=== PATIENT | female | born 1995 | race African-American/Black ===

== ENCOUNTER 2016-04-11 13:12 | Emergency (ER) | payer OTHER ==
[~2016-04-11 13:12] MED LIST: INSUH10VL SC; INSUHUMDS SC; INSULANT SC; LEVA750T PO
--- NOTE | 2016-04-11 14:42 | EDDOCDS ---
Nurse's Notes [facility] Name: Lindsay Livingston Age: 21 yrs Sex: Female : 1995 Arrival Date: 04/11/2016 Time: 13:12 Bed TR7 Private MD: Diagnosis: Acute tonsillitis Presentation: 04/11 13:17 Presenting complaint: Patient states: pt c/p swollen tonsils, pain with swallowing, and ead body aches. onset of symptoms two days ago. Adult Sepsis Screening: The patient does not have new or worsening altered mentation. Patient's respiratory rate is less than 22. Systolic blood pressure is greater than 100. Patient has a qSOFA score of 0- Negative Sepsis Screen. Suicide/Homicide risk assessment- the patient denies having any suicidal and/or homicidal ideations and does not present with any other emotional, behavioral or mental health complaints. Status: Patient is not a director of special services or dependent. Transition of care: patient was not received from another setting of care. 13:17 Acuity: TANNER Level 4 ead 13:17 Method Of Arrival: Walkin/Carried/Asstd ead Triage Assessment: 13:19 General: Appears in no apparent distress, uncomfortable, Behavior is appropriate for ead age, cooperative. Pain: Location: throat Pain currently is 8 out of 10 on a pain scale. HIV screening NA for this visit Offered previously. EENT: Reports pain when swallowing. Respiratory: Airway is patent Respiratory effort is even, unlabored. Derm: No deficits noted. 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 Lantus 10 units Sub-Q twice a day (Last dose: 04/11/2016 07:00) 2. Novolog 14 units with each meal TID Sub-Q (Last dose: 04/11/2016 07:00) - PMHx: Diabetes - IDDM: controlled; - PSHx: tooth extraction; - Social history: Smoking status: Patient states was never smoker of tobacco. No barriers to communication noted, The patient speaks fluent Gabonese, Speaks appropriately for age. - Family history: Not pertinent. - : The pt / caregiver states he / she is not on anticoagulants. Home medication list is obtained from the patient, [employer] import data. - Exposure Risk Screening:: None identified. Screenin:41 Screening information is obtained from the patient. Fall risk: No risks identified. ead Assistance ADL's: requires no assistance with activities of daily living. Abuse/DV Screen: The patient / caregiver reports he/she is: not in a situation that causes fear, pain or injury. Nutritional screening: No deficits noted. Advance Directives: Currently, there is no health care proxy. home support is adequate. Assessment: 13:53 Adult Sepsis Screening: The patient does not have new or worsening altered mentation. dsf Patient's respiratory rate is less than 22. Systolic blood pressure is greater than 100. Patient has a qSOFA score of 0- Negative Sepsis Screen. General: Appears ill. Pain: Location: head, ears, throat and generalized all over body Quality of pain is described as aching. Neurological: Level of Consciousness is awake, alert. EENT: Reports pain in right ear and left ear when swallowing. Respiratory: Airway is patent Respiratory effort is even, unlabored, Respiratory pattern is regular, symmetrical. Derm: Skin is pink, warm & dry. 14:41 General: Appears in no apparent distress, Behavior is appropriate for age, cooperative. ead Neurological: Level of Consciousness is awake, alert, obeys commands, Oriented to person, place, time. Respiratory: Airway is patent Respiratory effort is even, unlabored. Derm: Skin is pink, warm & dry. Vital Signs: 13:13 BP 152 / 94; Pulse 109; Resp 16; Temp 98.8(O); Pulse Ox 99% on R/A; Weight 61.23 kg lr2 (R); Height 5 ft. 3 in. (160.02 cm) (R); Pain 8/10; 14:40 BP 121 / 77; Pulse 118; Resp 16; Temp 100.2(O); Pulse Ox 96% on R/A; ead 13:13 Body Mass Index 23.91 (61.23 kg, 160.02 cm) lr2 14:40 tempurature discussed with provider, recommended pt take tylenol or motrin at home for ead fever as needed. Vitals: 13:13 Log In Time: April 11, 2016 at 13:12. lr2 ED Course: 13:13 Patient visited by Krystle Watts. lr2 13:13 Patient moved to Waiting lr2 13:14 Patient moved to Pre RCE lr2 13:18 Triage Initiated ead 13:53 Patient moved to Triage 1 dsf 13:54 Patient visited by Angela Avery RN. dsf 14:27 Adan Ye [facility]-C [facility] cc10 14:27 Preet Wilkins MD is Attending Physician. cc10 14:27 Patient visited by Adan Ye PA-C. cc10 14:27 Patient visited by Adan Ye PA-C. cc10 14:40 Patient moved to TR7 ar3 14:41 The patient / caregiver is instructed regarding the plan of care and ED course. ead 14:41 No IV's were initiated during this patient's visit. No procedures done that require ead assistance. Order Results: There are currently no results for this order. Outcome: 14:31 Discharge ordered by Provider. cc10 14:41 Discharge Assessment: Patient awake and alert. obeys commands, Oriented to person, ead place and time. patient administered narcotics - no. The following High Risk Discharge criteria are identified: None. Discharged to home ambulatory. Condition: unchanged. Discharge instructions given to patient, Instructed on discharge instructions, follow up and referral plans. medication usage, Demonstrated understanding of instructions, medications, Pt was receptive of discharge instructions/ teaching. Prescriptions given X 3. No special radiology studies were completed. Property sent home with patient. 14:42 Patient left the ED. ead Signatures: Jenn Navarro, INSPECTOR MATERIALS AND PROCESSES INSPECTOR MATERIALS AND PROCESSES ar3 Angela Avery RN RN [facility] Aliyah Golden RN RN ead Adan Ye PA-C PA-C cc Krystle Watts lr2 MTDD
--- NOTE | 2016-04-11 14:42 | EDDOCDS ---
Physician Documentation [facility] Name: Lindsay Livingston Age: 21 yrs Sex: Female : 1995 Arrival Date: 04/11/2016 Time: 13:12 Bed TR7 Private MD: Disposition: 04/11/16 14:31 Discharged to Home/Self Care. Impression: Acute tonsillitis. - Condition is Stable. - Discharge Instructions: Tonsillitis. - Prescriptions for lidocaine HCl 2 % Mucous Membrane solution - take 15 milliliter by ORAL route every 3 hours; 200 milliliter. Amoxicillin 500 mg Oral Capsule - take 1 capsule by ORAL route every 8 hours for 10 days; 30 tablet. Prednisone 20 mg Oral Tablet - take 1 tablet by ORAL route once daily for 5 days; 5 tablet. - Work Release Form - 3 day, Medication Reconciliation form. - Follow up: Private Physician; When: Call to arrange an appointment; Reason: Recheck today's complaints, Continuance of care. - Problem is new. - Symptoms are unchanged. Historical: - Allergies: no known allergies; - Home Meds: 1. Lantus 10 units Sub-Q twice a day (Last dose: 04/11/2016 07:00) 2. Novolog 14 units with each meal TID Sub-Q (Last dose: 04/11/2016 07:00) - PMHx: Diabetes - IDDM: controlled; - PSHx: tooth extraction; - Social history: Smoking status: Patient states was never smoker of tobacco. No barriers to communication noted, The patient speaks fluent Sudanese, Speaks appropriately for age. - Family history: Not pertinent. - : The pt / caregiver states he / she is not on anticoagulants. Home medication list is obtained from the patient, [employer] import data. - Exposure Risk Screening:: None identified. 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 3 in. (160.02 cm) (R); Pain 8/10; 14:40 BP 121 / 77; Pulse 118; Resp 16; Temp 100.2(O); Pulse Ox 96% on R/A; ead 13:13 Body Mass Index 23.91 (61.23 kg, 160.02 cm) lr2 14:40 tempurature discussed with provider, recommended pt take tylenol or motrin at home for ead fever as needed. MDM: 14:32 Financial registration complete. lg Signatures: Mark Pillai, Reg Reg lg Aliyah Golden RN RN ead Adan Ye, LAURAC PAFederico cc10 MTDD
--- NOTE | 2016-04-13 15:42 | EDDOCDS ---
Nurse's Notes [facility] Name: Lindsay Livingston Age: 21 yrs Sex: Female : 1995 Arrival Date: 04/11/2016 Time: 13:12 Bed TR7 Private MD: Diagnosis: Acute tonsillitis Presentation: 04/11 13:17 Presenting complaint: Patient states: pt c/p swollen tonsils, pain with swallowing, and ead body aches. onset of symptoms two days ago. Adult Sepsis Screening: The patient does not have new or worsening altered mentation. Patient's respiratory rate is less than 22. Systolic blood pressure is greater than 100. Patient has a qSOFA score of 0- Negative Sepsis Screen. Suicide/Homicide risk assessment- the patient denies having any suicidal and/or homicidal ideations and does not present with any other emotional, behavioral or mental health complaints. Status: Patient is not a health services rn or dependent. Transition of care: patient was not received from another setting of care. 13:17 Acuity: TANNER Level 4 ead 13:17 Method Of Arrival: Walkin/Carried/Asstd ead Triage Assessment: 13:19 General: Appears in no apparent distress, uncomfortable, Behavior is appropriate for ead age, cooperative. Pain: Location: throat Pain currently is 8 out of 10 on a pain scale. HIV screening NA for this visit Offered previously. EENT: Reports pain when swallowing. Respiratory: Airway is patent Respiratory effort is even, unlabored. Derm: No deficits noted. 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 Lantus 10 units Sub-Q twice a day (Last dose: 04/11/2016 07:00) 2. Novolog 14 units with each meal TID Sub-Q (Last dose: 04/11/2016 07:00) - PMHx: Diabetes - IDDM: controlled; - PSHx: tooth extraction; - Social history: Smoking status: Patient states was never smoker of tobacco. No barriers to communication noted, The patient speaks fluent Moroccan, Speaks appropriately for age. - Family history: Not pertinent. - : The pt / caregiver states he / she is not on anticoagulants. Home medication list is obtained from the patient, [employer] import data. - Exposure Risk Screening:: None identified. Screenin:41 Screening information is obtained from the patient. Fall risk: No risks identified. ead Assistance ADL's: requires no assistance with activities of daily living. Abuse/DV Screen: The patient / caregiver reports he/she is: not in a situation that causes fear, pain or injury. Nutritional screening: No deficits noted. Advance Directives: Currently, there is no health care proxy. home support is adequate. Assessment: 13:53 Adult Sepsis Screening: The patient does not have new or worsening altered mentation. dsf Patient's respiratory rate is less than 22. Systolic blood pressure is greater than 100. Patient has a qSOFA score of 0- Negative Sepsis Screen. General: Appears ill. Pain: Location: head, ears, throat and generalized all over body Quality of pain is described as aching. Neurological: Level of Consciousness is awake, alert. EENT: Reports pain in right ear and left ear when swallowing. Respiratory: Airway is patent Respiratory effort is even, unlabored, Respiratory pattern is regular, symmetrical. Derm: Skin is pink, warm & dry. 14:41 General: Appears in no apparent distress, Behavior is appropriate for age, cooperative. ead Neurological: Level of Consciousness is awake, alert, obeys commands, Oriented to person, place, time. Respiratory: Airway is patent Respiratory effort is even, unlabored. Derm: Skin is pink, warm & dry. Vital Signs: 13:13 BP 152 / 94; Pulse 109; Resp 16; Temp 98.8(O); Pulse Ox 99% on R/A; Weight 61.23 kg lr2 (R); Height 5 ft. 3 in. (160.02 cm) (R); Pain 8/10; 14:40 BP 121 / 77; Pulse 118; Resp 16; Temp 100.2(O); Pulse Ox 96% on R/A; ead 13:13 Body Mass Index 23.91 (61.23 kg, 160.02 cm) lr2 14:40 tempurature discussed with provider, recommended pt take tylenol or motrin at home for ead fever as needed. Vitals: 13:13 Log In Time: April 11, 2016 at 13:12. lr2 ED Course: 13:13 Patient visited by Krystle Watts. lr2 13:13 Patient moved to Waiting lr2 13:14 Patient moved to Pre RCE lr2 13:18 Triage Initiated ead 13:53 Patient moved to Triage 1 dsf 13:54 Patient visited by Angela Avery,THOMAS. dsf 14:27 Adan Ye [facility]-C [facility] cc10 14:27 Preet Wilkins MD is Attending Physician. cc10 14:27 Patient visited by Adan Ye PA-C. cc10 14:27 Patient visited by Adan Ye PA-C. cc10 14:40 Patient moved to TR7 ar3 14:41 The patient / caregiver is instructed regarding the plan of care and ED course. ead 14:41 No IV's were initiated during this patient's visit. No procedures done that require ead assistance. 14:43 [facility] Payment Agreement was scanned into [employer] and attached to record. Order Results: There are currently no results for this order. Outcome: 14:31 Discharge ordered by Provider. [facility] 14:41 Discharge Assessment: Patient awake and alert. obeys commands, Oriented to person, ead place and time. patient administered narcotics - no. The following High Risk Discharge criteria are identified: None. Discharged to home ambulatory. Condition: unchanged. Discharge instructions given to patient, Instructed on discharge instructions, follow up and referral plans. medication usage, Demonstrated understanding of instructions, medications, Pt was receptive of discharge instructions/ teaching. Prescriptions given X 3. No special radiology studies were completed. Property sent home with patient. 14:42 Patient left the ED. ead Signatures: Mark Pillai, Reg Reg lg Jenn Navarro, EVS ATTENDANT EVS ATTENDANT ar3 Angela AveryRN RN [facility] Aliyah Golden RN RN ead Adan Ye PA-C PA-C cc Krystle Watts lr2 Chart Complete MTDD
--- NOTE | 2016-04-13 15:42 | EDDOCDS ---
Physician Documentation [facility] Name: Lindsay Livingston Age: 21 yrs Sex: Female : 1995 Arrival Date: 04/11/2016 Time: 13:12 Bed TR7 Private MD: Disposition: 04/11/16 14:31 Discharged to Home/Self Care. Impression: Acute tonsillitis. - Condition is Stable. - Discharge Instructions: Tonsillitis. - Prescriptions for lidocaine HCl 2 % Mucous Membrane solution - take 15 milliliter by ORAL route every 3 hours; 200 milliliter. Amoxicillin 500 mg Oral Capsule - take 1 capsule by ORAL route every 8 hours for 10 days; 30 tablet. Prednisone 20 mg Oral Tablet - take 1 tablet by ORAL route once daily for 5 days; 5 tablet. - Work Release Form - 3 day, Medication Reconciliation form. - Follow up: Private Physician; When: Call to arrange an appointment; Reason: Recheck today's complaints, Continuance of care. - Problem is new. - Symptoms are unchanged. Historical: - Allergies: no known allergies; - Home Meds: 1. Lantus 10 units Sub-Q twice a day (Last dose: 04/11/2016 07:00) 2. Novolog 14 units with each meal TID Sub-Q (Last dose: 04/11/2016 07:00) - PMHx: Diabetes - IDDM: controlled; - PSHx: tooth extraction; - Social history: Smoking status: Patient states was never smoker of tobacco. No barriers to communication noted, The patient speaks fluent Emirati, Speaks appropriately for age. - Family history: Not pertinent. - : The pt / caregiver states he / she is not on anticoagulants. Home medication list is obtained from the patient, [employer] import data. - Exposure Risk Screening:: None identified. 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 3 in. (160.02 cm) (R); Pain 8/10; 14:40 BP 121 / 77; Pulse 118; Resp 16; Temp 100.2(O); Pulse Ox 96% on R/A; ead 13:13 Body Mass Index 23.91 (61.23 kg, 160.02 cm) lr2 14:40 tempurature discussed with provider, recommended pt take tylenol or motrin at home for ead fever as needed. MDM: 14:32 Financial registration complete. lg 14:43 [facility] Payment Agreement was scanned into [employer] and attached to record. lg Signatures: Mark Pillai, Brayan Reg lg Aliyah Golden RN RN ead Adan Ye, PA-C PA-C cc10 The chart was reviewed and I authenticate all verbal orders and agree with the evaluation and treatment provided.Attachments: 14:43 [facility] [place] Agreement lg Chart Complete MTDD
--- NOTE | 2016-04-13 15:42 | EDDOCDS ---
Physician Documentation [facility] Name: Lindsay Livingston Age: 21 yrs Sex: Female : 1995 Arrival Date: 04/11/2016 Time: 13:12 Bed TR7 Private MD: Disposition: 04/11/16 14:31 Discharged to Home/Self Care. Impression: Acute tonsillitis. - Condition is Stable. - Discharge Instructions: Tonsillitis. - Prescriptions for lidocaine HCl 2 % Mucous Membrane solution - take 15 milliliter by ORAL route every 3 hours; 200 milliliter. Amoxicillin 500 mg Oral Capsule - take 1 capsule by ORAL route every 8 hours for 10 days; 30 tablet. Prednisone 20 mg Oral Tablet - take 1 tablet by ORAL route once daily for 5 days; 5 tablet. - Work Release Form - 3 day, Medication Reconciliation form. - Follow up: Private Physician; When: Call to arrange an appointment; Reason: Recheck today's complaints, Continuance of care. - Problem is new. - Symptoms are unchanged. Historical: - Allergies: no known allergies; - Home Meds: 1. Lantus 10 units Sub-Q twice a day (Last dose: 04/11/2016 07:00) 2. Novolog 14 units with each meal TID Sub-Q (Last dose: 04/11/2016 07:00) - PMHx: Diabetes - IDDM: controlled; - PSHx: tooth extraction; - Social history: Smoking status: Patient states was never smoker of tobacco. No barriers to communication noted, The patient speaks fluent [place], Speaks appropriately for age. - Family history: Not pertinent. - : The pt / caregiver states he / she is not on anticoagulants. Home medication list is obtained from the patient, [employer] import data. - Exposure Risk Screening:: None identified. 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 3 in. (160.02 cm) (R); Pain 8/10; 14:40 BP 121 / 77; Pulse 118; Resp 16; Temp 100.2(O); Pulse Ox 96% on R/A; ead 13:13 Body Mass Index 23.91 (61.23 kg, 160.02 cm) lr2 14:40 tempurature discussed with provider, recommended pt take tylenol or motrin at home for ead fever as needed. MDM: 14:32 Financial registration complete. lg 14:43 [facility] Payment Agreement was scanned into [employer] and attached to record. lg Signatures: Mark Pillai, Brayan Reg lg Aliyah Golden RN RN ead Adan Ye, PA-C PA-C cc10 The chart was reviewed and I authenticate all verbal orders and agree with the evaluation and treatment provided.Attachments: 14:43 [facility] [place] lg Chart Complete MTDD
== END 2016-04-11 14:42 | disposition home or self-care (01) ==
LOC: M ED 13:12
DX: J03.00 Acute streptococcal tonsillitis, unspecified (principal); E10.9 Type 1 diabetes mellitus without complications; Z79.4 Long term (current) use of insulin

== ENCOUNTER 2016-06-13 20:33 | Emergency (ER) | payer OTHER ==
[~2016-06-13] VITALS: Ht 160 cm; Wt 63.5 kg
[2016-06-13] MEDS ORDERED: ERYTHROMYCIN OPHTH OINT OU ONE (22:15)
[2016-06-13] MEDS ORDERED: ERYTOIN8 OU (22:16)
[2016-06-13 22:25] VITALS: BP 101/61
== END 2016-06-13 22:28 | disposition home or self-care (01) ==
LOC: M ED 21:55
DX: B30.9 Viral conjunctivitis, unspecified (principal); E10.9 Type 1 diabetes mellitus without complications; I10 Essential (primary) hypertension; F41.9 Anxiety disorder, unspecified; D57.3 Sickle-cell trait; Z79.4 Long term (current) use of insulin

== ENCOUNTER → 2016-11-12 | Outpatient (REF) | payer OTHER, SELFPAY ==
[~2016-11-12] MED LIST changes: +ERYTOIN8 OU; -LEVA750T PO; +LEVA750T7 PO
== END ==
LOC: M SFHCLERA 18:57
PROVIDERS: ATTEND Physician Assistant
DX: R30.0 Dysuria (principal)

== ENCOUNTER → 2017-01-03 | Outpatient (REF) | payer OTHER | LOC: M SFHCLERA 16:21 | PROVIDERS: ATTEND Nurse Practitioner Family | DX: R39.15 Urgency of urination (principal) ==

== ENCOUNTER → 2017-05-09 | Outpatient (CLI) | payer OTHER ==
[2017-05-09 11:13] LABS: BASO # 0.1 10^3/uL (0.0-0.2); BASO % 0.5 % (0.0-1.0); EOS # 0.2 10^3/uL (0.0-0.50); EOS % 1.5 % (0.0-3.0); HEMOGLOBIN 11.3 g/dl (12.0-16.0); IMMATURE GRANULOCYTE % 0.2 % (0-3.0); LYMPH # 2.4 10^3/uL (1.5-6.5); LYMPH % 21.8 % (24.0-44.0); MEAN CORPUSCULAR HEMOGLOBIN 26.2 pg (27.0-33.0); MEAN CORPUSCULAR HGB CONC 35.3 g/dl (32.0-36.5); MEAN CORPUSCULAR VOLUME 74.1 fl (80.0-96.0); MONO # 0.6 10^3/uL (0.0-0.8); MONO % 5.3 % (0.0-5.0); NEUTROPHILS # 7.7 10^3/uL (1.8-7.7); NEUTROPHILS % 70.7 % (36.0-66.0); PLATELET COUNT, AUTOMATED 249 10^3/uL (150-450); RED BLOOD COUNT 4.32 10^6/uL (4.00-5.40); RED CELL DISTRIBUTION WIDTH 13.2 % (11.5-14.5); WHITE BLOOD COUNT 10.9 10^3/uL (4.0-10.0)
[2017-05-09 11:46] LABS: ESTIMATED AVERAGE GLUCOSE 206 MG/DL (60-110); HEMOGLOBIN A1c 8.8 %
[2017-05-09 12:20] LABS: ALT/SGPT 18 U/L (12-78); AST/SGOT 9 U/L (7-37); BILIRUBIN,TOTAL 0.5 MG/DL (0.2-1.0); CREATININE FOR GFR 0.61 MG/DL (0.55-1.30); GLOMERULAR FILTRATION RATE > 60.0 (>60); LDH LACTATE DEHYDROGENASE 183 U/L (84-246); URIC ACID 2.4 MG/DL (2.6-6.0)
[2017-05-09 12:21] LABS: TOTAL PROTEIN,RANDOM URINE 309.9 MG/DL (0.0-12.0)
[2017-05-09 13:29] LABS: CHLAMYDIA DNA AMPLIFICATION NEGATIVE (NEGATIVE); GC DNA AMPLIFICATION NEGATIVE (NEGATIVE)
[2017-05-10 10:35] LABS: HBsAg Prenatal NEGATIVE (NEGATIVE); RUBELLA IgG QUALITATIVE IMMUNE (IMMUNE)
[2017-05-10 10:56] LABS: HEPATITIS C VIRUS ABY INDEX < 0.0 INDEX (<0.8)
[2017-05-10 11:13] LABS: HIV 1&2 SCREEN CENTAUR NEGATIVE (NEGATIVE)
== END ==
LOC: M LAB 10:22
DX: Z34.81 Encounter for supervision of other normal pregnancy, first trimester (principal); Z3A.09 9 weeks gestation of pregnancy
CPT/HCPCS: 84460

== ENCOUNTER → 2017-05-09 | Outpatient (CLI) | payer OTHER | LOC: M SMT 09:39 | DX: Z3A.09 9 weeks gestation of pregnancy (principal); Z53.9 Procedure and treatment not carried out, unspecified reason ==

== ENCOUNTER 2017-05-19 01:29 | Emergency (ER) | payer OTHER ==
[2017-05-19 02:11] LABS: BEDSIDE GLUCOSE 58 MG/DL (70-105)
[2017-05-19] MEDS: DEXTROSE 50% 50 ML SYRINGE IV (02:40)
[2017-05-19 03:24] LABS: BEDSIDE GLUCOSE 127 MG/DL (70-105)
[2017-05-19] MEDS: D5W/0.45% SODIUM CHLORIDE 1,000 ML IV ×2 (03:30→12:17)
[2017-05-19 05:43] LABS: BEDSIDE GLUCOSE 140 MG/DL (70-105)
[2017-05-19 05:43] LABS: BEDSIDE GLUCOSE 126 MG/DL (70-105)
[2017-05-19] MEDS: HYALURONIDASE 150UNIT/ML 1ML VIAL (AMPHADASE) (J3470) ID ×2 (07:29→07:30)
[2017-05-19] MEDS: HumuLIN R (REGULAR) INSULIN (NovoLIN R) **100U/ML** PER UNIT SC (13:28)
[2017-05-20 08:45] LABS: BEDSIDE GLUCOSE 182 MG/DL (70-105)
[2017-05-20 08:45] LABS: BEDSIDE GLUCOSE 168 MG/DL (70-105)
[2017-05-20 08:45] LABS: BEDSIDE GLUCOSE 275 MG/DL (70-105)
[2017-05-20 08:45] LABS: BEDSIDE GLUCOSE 240 MG/DL (70-105)
== END 2017-05-19 16:01 | disposition home or self-care (01) ==
LOC: M ED 01:29
DX: O9A.211 Injury, poisoning and certain other consequences of external causes complicating pregnancy, first trimester (principal); Y92.238 Other place in hospital as the place of occurrence of the external cause; O24.011 Pre-existing type 1 diabetes mellitus, in pregnancy, first trimester; Z3A.11 11 weeks gestation of pregnancy; Z79.4 Long term (current) use of insulin
CPT/HCPCS: J3470

== ENCOUNTER 2017-05-20 13:10 | Emergency (ER) | payer OTHER | END 2017-05-20 13:54 | disposition home or self-care (01) | LOC: M ED 13:10 | DX: O9A.211 Injury, poisoning and certain other consequences of external causes complicating pregnancy, first trimester (principal); T80.89XA Other complications following infusion, transfusion and therapeutic injection, initial encounter; M79.631 Pain in right forearm; M79.89 Other specified soft tissue disorders; X58.XXXA Exposure to other specified factors, initial encounter; Y92.238 Other place in hospital as the place of occurrence of the external cause; O24.011 Pre-existing type 1 diabetes mellitus, in pregnancy, first trimester; O10.92 Unspecified pre-existing hypertension complicating childbirth; O99.611 Diseases of the digestive system complicating pregnancy, first trimester; K21.9 Gastro-esophageal reflux disease without esophagitis; Z3A.11 11 weeks gestation of pregnancy | CPT/HCPCS: 99282 ==

== ENCOUNTER → 2017-06-14 | Outpatient (REF) | payer OTHER | LOC: M LAB REF 13:04 | DX: O24.012 Pre-existing type 1 diabetes mellitus, in pregnancy, second trimester (principal); Z3A.00 Weeks of gestation of pregnancy not specified | CPT/HCPCS: 87186 ==

== ENCOUNTER 2017-06-15 22:46 | Emergency (ER) | payer OTHER ==
[2017-06-15] MEDS: NS 1,000 ML IV (23:24)
[2017-06-15 23:29] LABS: BEDSIDE GLUCOSE 128 MG/DL (70-105)
[2017-06-15 23:32] LABS: HEMATOCRIT 29.7 % (36.0-47.0); HEMOGLOBIN 10.7 g/dl (12.0-15.5); MEAN CORPUSCULAR HEMOGLOBIN 27.2 pg (27.0-33.0); MEAN CORPUSCULAR VOLUME 75.6 fl (80.0-96.0); PLATELET COUNT, AUTOMATED 204 10^3/uL (150-450); RED BLOOD COUNT 3.93 10^6/uL (4.00-5.40); RED CELL DISTRIBUTION WIDTH 13.2 % (11.5-14.5); WHITE BLOOD COUNT 14.7 10^3/uL (4.0-10.0)
[2017-06-15 23:54] LABS: ANION GAP 5 MEQ/L (8-16); BLOOD UREA NITROGEN 14 MG/DL (7-18); CALCIUM LEVEL 8.6 MG/DL (8.5-10.1); CARBON DIOXIDE LEVEL 26 MEQ/L (21-32); CHLORIDE LEVEL 110 MEQ/L (98-107); CREATININE FOR GFR 0.59 MG/DL (0.55-1.30); GLOMERULAR FILTRATION RATE > 60.0 (>60); GLUCOSE, FASTING 91 MG/DL (70-100); POTASSIUM SERUM 3.8 MEQ/L (3.5-5.1); SODIUM LEVEL 141 MEQ/L (136-145)
== END 2017-06-16 00:25 | disposition home or self-care (01) ==
LOC: M ED 06-16 00:25
DX: O24.112 Pre-existing type 2 diabetes mellitus, in pregnancy, second trimester (principal); E11.649 Type 2 diabetes mellitus with hypoglycemia without coma; Z3A.14 14 weeks gestation of pregnancy
CPT/HCPCS: 80048

== ENCOUNTER → 2017-06-30 | Outpatient (REF) | payer OTHER, MEDICAID | LOC: M LAB REF 13:27 | DX: O24.12 Pre-existing type 2 diabetes mellitus, in childbirth (principal); Z3A.00 Weeks of gestation of pregnancy not specified | CPT/HCPCS: 87086 ==

== ENCOUNTER → 2017-08-22 | Outpatient (CLI) | payer OTHER, MEDICAID ==
[2017-08-22 17:39] LABS: HEMATOCRIT 27.1 % (36.0-47.0); HEMOGLOBIN 9.6 g/dl (12.0-15.5); MEAN CORPUSCULAR HEMOGLOBIN 28.3 pg (27.0-33.0); MEAN CORPUSCULAR HGB CONC 35.4 g/dl (32.0-36.5); MEAN CORPUSCULAR VOLUME 79.9 fl (80.0-96.0); PLATELET COUNT, AUTOMATED 168 10^3/uL (150-450); RED BLOOD COUNT 3.39 10^6/uL (4.00-5.40); RED CELL DISTRIBUTION WIDTH 12.9 % (11.5-14.5); WHITE BLOOD COUNT 14.3 10^3/uL (4.0-10.0)
== END ==
LOC: M LAB 15:43
DX: Z34.82 Encounter for supervision of other normal pregnancy, second trimester (principal); Z3A.24 24 weeks gestation of pregnancy
CPT/HCPCS: 76811

== ENCOUNTER → 2017-09-15 | Outpatient (CLI) | payer OTHER | LOC: M RAD 13:13 | DX: Z34.82 Encounter for supervision of other normal pregnancy, second trimester (principal) | CPT/HCPCS: 76816 ==

== ENCOUNTER → 2017-10-17 | Outpatient (CLI) | payer OTHER | LOC: M WHC 14:54 | DX: O24.012 Pre-existing type 1 diabetes mellitus, in pregnancy, second trimester (principal); Z3A.33 33 weeks gestation of pregnancy | CPT/HCPCS: 76816 ==

== ENCOUNTER → 2017-10-26 | Outpatient (CLI) | payer OTHER ==
[2017-10-26 15:11] LABS: ESTIMATED AVERAGE GLUCOSE 143 MG/DL (60-110); HEMOGLOBIN A1c 6.6 %
== END ==
LOC: M SMT 10:24
DX: O24.113 Pre-existing type 2 diabetes mellitus, in pregnancy, third trimester (principal); Z3A.00 Weeks of gestation of pregnancy not specified
CPT/HCPCS: 83036

== ENCOUNTER 2017-11-06 14:16 | Inpatient (IN) | payer OTHER ==
[2017-11-06 14:54] LABS: BEDSIDE GLUCOSE 235 MG/DL (70-105)
[2017-11-06] MEDS: ONDANSETRON 4MG/2ML VIAL (J2405) IV ×3 (15:10→23:15)
[2017-11-06] MEDS: NS 1,000 ML IV ×2 (15:10→17:03)
[2017-11-06 15:19] LABS: HEMATOCRIT 34.4 % (36.0-47.0); HEMOGLOBIN 11.9 g/dl (12.0-15.5); MEAN CORPUSCULAR HEMOGLOBIN 27.8 pg (27.0-33.0); MEAN CORPUSCULAR HGB CONC 34.6 g/dl (32.0-36.5); MEAN CORPUSCULAR VOLUME 80.4 fl (80.0-96.0); PLATELET COUNT, AUTOMATED 133 10^3/uL (150-450); RED BLOOD COUNT 4.28 10^6/uL (4.00-5.40); RED CELL DISTRIBUTION WIDTH 14.6 % (11.5-14.5); WHITE BLOOD COUNT 10.2 10^3/uL (4.0-10.0)
[2017-11-06 15:22] LABS: APPEARANCE, URINE HAZY (CLEAR); BACTERIA, URINE AUTO NEGATIVE (NEGATIVE); BILIRUBIN, URINE AUTO NEGATIVE (NEGATIVE); BLOOD, URINE BLOOD NEGATIVE (NEGATIVE); COLOR, URINE YELLOW (YELLOW); GLUCOSE, URINE (UA) AUTO 3+ mg/dL (NEGATIVE); KETONE, URINE AUTO 2+ mg/dL (NEGATIVE); LEUKOCYTE ESTERASE, URINE AUTO NEGATIVE (NEGATIVE); MUCUS, URINE SMALL (NEGATIVE); NITRITE, URINE AUTO NEGATIVE (NEGATIVE); PROTEIN, URINE AUTO 3+ mg/dL (NEGATIVE); RBC, URINE AUTO 4 /HPF (0-3); SPECIFIC GRAVITY URINE AUTO 1.021 (1.002-1.035); SQUAMOUS EPITHELIAL CELL UR AU 0 /HPF (0-6); UROBILINOGEN, URINE AUTO 0.2 mg/dL (0.0-2.0); WBC, URINE AUTO 3 /HPF (0-3)
[2017-11-06 15:39] LABS: ALBUMIN 2.6 GM/DL (3.2-5.2); ALBUMIN/GLOBULIN RATIO 0.65 (1.00-1.93); ALKALINE PHOSPHATASE 167 U/L (45-117); ALT/SGPT 17 U/L (12-78); ANION GAP 16 MEQ/L (8-16); AST/SGOT 40 U/L (7-37); BILIRUBIN,TOTAL 0.5 MG/DL (0.2-1.0); BLOOD UREA NITROGEN 19 MG/DL (7-18); CALCIUM LEVEL 8.7 MG/DL (8.5-10.1); CARBON DIOXIDE LEVEL 17 MEQ/L (21-32); CHLORIDE LEVEL 106 MEQ/L (98-107); CREATININE FOR GFR 1.09 MG/DL (0.55-1.30); GLOMERULAR FILTRATION RATE > 60.0 (>60); GLUCOSE, FASTING 211 MG/DL (70-100); POTASSIUM SERUM 4.9 MEQ/L (3.5-5.1); SODIUM LEVEL 139 MEQ/L (136-145); TOTAL PROTEIN 6.6 GM/DL (6.4-8.2)
[2017-11-06] MEDS ORDERED: GLUCOSE 4 GM CHEW TABLET PO (15:45)
[2017-11-06] MEDS ORDERED: DEXTROSE 50% 50 ML SYRINGE IV (15:45)
[2017-11-06] MEDS ORDERED: GLUCAGON FOR INJ 1 MG VIAL (J1610) SC (15:45)
[2017-11-06 16:04] LABS: LDH LACTATE DEHYDROGENASE 271 U/L (84-246); URIC ACID 7.2 MG/DL (2.6-6.0)
[2017-11-06 16:27] LABS: BEDSIDE GLUCOSE 198 MG/DL (70-105)
[2017-11-06 16:50] LABS: TOTAL PROTEIN,RANDOM URINE 369.4 MG/DL (0.0-12.0)
[2017-11-06] MEDS ORDERED: HumaLOG INSULIN (NovoLOG) PER UNIT SC (17:30)
[2017-11-06] MEDS: INSULIN HUMAN REGULAR 100 UNITS in NS 99 ML IV (17:49)
[2017-11-06 17:54] LABS: BEDSIDE GLUCOSE 183 MG/DL (70-105)
[2017-11-06 21:49] LABS: BEDSIDE GLUCOSE 103 MG/DL (70-105)
[2017-11-06 21:53] LABS: BEDSIDE GLUCOSE 85 MG/DL (70-105)
[2017-11-06 23:55] LABS: BEDSIDE GLUCOSE 92 MG/DL (70-105)
[2017-11-07] MEDS: NS 1,000 ML IV ×3 (01:04→13:57)
[2017-11-07] MEDS: INSULIN HUMAN REGULAR 100 UNITS in NS 99 ML IV (01:50)
[2017-11-07 01:51] LABS: BEDSIDE GLUCOSE 72 MG/DL (70-105)
[2017-11-07] MEDS: PROMETHAZINE INJ 25 MG/ML VIAL (J2550) IV ×3 (02:20→17:12)
[2017-11-07 03:55] LABS: BEDSIDE GLUCOSE 71 MG/DL (70-105)
[2017-11-07 06:02] LABS: BEDSIDE GLUCOSE 74 MG/DL (70-105)
[2017-11-07 07:59] LABS: BEDSIDE GLUCOSE 86 MG/DL (70-105)
[2017-11-07 09:51] LABS: HEMATOCRIT 29.6 % (36.0-47.0); HEMOGLOBIN 10.3 g/dl (12.0-15.5); MEAN CORPUSCULAR HEMOGLOBIN 27.8 pg (27.0-33.0); MEAN CORPUSCULAR HGB CONC 34.8 g/dl (32.0-36.5); MEAN CORPUSCULAR VOLUME 79.8 fl (80.0-96.0); PLATELET COUNT, AUTOMATED 132 10^3/uL (150-450); RED BLOOD COUNT 3.71 10^6/uL (4.00-5.40); RED CELL DISTRIBUTION WIDTH 14.6 % (11.5-14.5); WHITE BLOOD COUNT 11.4 10^3/uL (4.0-10.0)
[2017-11-07 09:53] LABS: BEDSIDE GLUCOSE 88 MG/DL (70-105)
[2017-11-07 10:19] LABS: ALBUMIN 2.1 GM/DL (3.2-5.2); ALBUMIN/GLOBULIN RATIO 0.53 (1.00-1.93); ALKALINE PHOSPHATASE 155 U/L (45-117); ALT/SGPT 15 U/L (12-78); ANION GAP 19 MEQ/L (8-16); AST/SGOT 28 U/L (7-37); BILIRUBIN,TOTAL 0.5 MG/DL (0.2-1.0); BLOOD UREA NITROGEN 15 MG/DL (7-18); CALCIUM LEVEL 8.4 MG/DL (8.5-10.1); CARBON DIOXIDE LEVEL 12 MEQ/L (21-32); CHLORIDE LEVEL 110 MEQ/L (98-107); CREATININE FOR GFR 0.92 MG/DL (0.55-1.30); GLOMERULAR FILTRATION RATE > 60.0 (>60); GLUCOSE, FASTING 88 MG/DL (70-100); POTASSIUM SERUM 4.2 MEQ/L (3.5-5.1); SODIUM LEVEL 141 MEQ/L (136-145); TOTAL PROTEIN 6.1 GM/DL (6.4-8.2)
[2017-11-07 11:49] LABS: BEDSIDE GLUCOSE 100 MG/DL (70-105)
[2017-11-07 13:46] LABS: BEDSIDE GLUCOSE 85 MG/DL (70-105)
[2017-11-07] MEDS ORDERED: PROMETHAZINE 25 MG TAB PO (14:45)
[2017-11-07 15:51] LABS: BEDSIDE GLUCOSE 100 MG/DL (70-105)
[2017-11-07] MEDS: MULTIVITAMIN -ADULT INJECTION 10 ML, THIAMINE INJection 100 MG, FOLIC ACID 1 MG in NS 1... IV (16:22)
[2017-11-07 17:54] LABS: BEDSIDE GLUCOSE 94 MG/DL (70-105)
[2017-11-07 19:55] LABS: BEDSIDE GLUCOSE 98 MG/DL (70-105)
[2017-11-07 21:59] LABS: BEDSIDE GLUCOSE 105 MG/DL (70-105)
[2017-11-07] MEDS: ALBUTEROL SULFATE 2.5 MG/0.5 ML INH NEB SOLN NEB (22:43)
[2017-11-08 00:25] LABS: BEDSIDE GLUCOSE 114 MG/DL (70-105)
[2017-11-08] MEDS: METOCLOPRAMIDE INJ 10MG/2ML VIAL (J2765) IV (00:26)
[2017-11-08] MEDS ORDERED: ISOVUE-370 76% 100ML VIAL (Q9967) As Ordered (01:17)
[2017-11-08 01:53] LABS: BEDSIDE GLUCOSE 148 MG/DL (70-105)
[2017-11-08 02:12] LABS: HEMATOCRIT 34.1 % (36.0-47.0); HEMOGLOBIN 11.3 g/dl (12.0-15.5); MEAN CORPUSCULAR HEMOGLOBIN 27.8 pg (27.0-33.0); MEAN CORPUSCULAR HGB CONC 33.1 g/dl (32.0-36.5); PLATELET COUNT, AUTOMATED 156 10^3/uL (150-450); RED BLOOD COUNT 4.06 10^6/uL (4.00-5.40); RED CELL DISTRIBUTION WIDTH 14.9 % (11.5-14.5)
[2017-11-08 02:51] LABS: ALT/SGPT 22 U/L (12-78); AST/SGOT 50 U/L (7-37); BILIRUBIN,TOTAL 0.6 MG/DL (0.2-1.0); CREATININE FOR GFR 1.22 MG/DL (0.55-1.30); GLOMERULAR FILTRATION RATE > 60.0 (>60); LDH LACTATE DEHYDROGENASE 291 U/L (84-246)
[2017-11-08] MEDS: INSULIN IV RATE CHANGE DOCUMENTATION ML/HR XX ×2 (03:32→06:24)
[2017-11-08 03:37] LABS: BEDSIDE GLUCOSE 152 MG/DL (70-105)
[2017-11-08] MEDS: BICITRA 30ML SOLN UDC PO (03:42)
[2017-11-08] MEDS ORDERED: ONDANSETRON 4MG/2ML VIAL (J2405) IV ×2 (03:59→05:30)
[2017-11-08] MEDS ORDERED: NALBUPHINE HCL 10 MG/ML AMP (J2300) IV ×2 (03:59→05:30)
[2017-11-08] MEDS ORDERED: NALOXONE INJ 0.4 MG/1 ML VIAL (J2310) IV ×2 (03:59)
[2017-11-08] MEDS ORDERED: METOCLOPRAMIDE INJ 10MG/2ML VIAL (J2765) IV (03:59)
[2017-11-08] MEDS ORDERED: OXYTOCIN INJ 10 UNITS/ML VIAL (J2590) As Ordered (04:25)
[2017-11-08] MEDS ORDERED: dexameTHASONE 4 MG/ML 1ML VIAL (J1100) As Ordered (04:25)
[2017-11-08] MEDS ORDERED: PHENYLephrine HCL 500 MCG/5 ML (100MCG/ML) SYRINGE (J2370) As Ordered (04:25)
[2017-11-08] MEDS ORDERED: MORPHINE PRES-FREE INJ 10 MG/10 ML VIAL (J2274) As Ordered (04:25)
[2017-11-08] MEDS ORDERED: ePHEDrine SULFATE 25 MG/5 ML(5MG/ML) SYRINGE As Ordered (04:25)
[2017-11-08] MEDS ORDERED: ONDANSETRON 4MG/2ML VIAL (J2405) As Ordered (04:25)
[2017-11-08] MEDS ORDERED: KETOROLAC 60 MG/2 ML VIAL (J1885) As Ordered (04:25)
[2017-11-08 04:28] LABS: CORD GAS ABE A -21.8; CORD GAS HCO3 A 12.2 MEQ/L; CORD GAS O2 SAT A < 15.0 %; CORD GAS PCO2 A 65.5 mmHg; CORD GAS PO2 A < 10.0 mmHg; CORD GAS TCO2 A 14.2 MEQ/L
[2017-11-08 04:32] LABS: CORD GAS PH A 6.889 UNITS
[2017-11-08 04:36] LABS: CORD GAS ABE V -20.9; CORD GAS PCO2 V 57.2 mmHg; CORD GAS TCO2 V 13.8 MEQ/L
[2017-11-08 04:44] LABS: AMPHETAMINES URINE REFLEX NEGATIVE (NEGATIVE); BARBITURATES URINE REFLEX NEGATIVE (NEGATIVE); BENZODIAZEPINES URINE REFLEX NEGATIVE (NEGATIVE); CANNABINOIDS URINE REFLEX NEGATIVE (NEGATIVE); COCAINE METABOLITE URINE REFLE NEGATIVE (NEGATIVE); METHADONE URINE REFLEX NEGATIVE (NEGATIVE); OPIATES URINE REFLEX NEGATIVE (NEGATIVE); PHENCYCLIDINE URINE REFLEX NEGATIVE (NEGATIVE)
[2017-11-08] MEDS ORDERED: MEPERIDINE INJ 25 MG/ML VIAL (J2175) IV (05:30)
[2017-11-08] MEDS ORDERED: fentaNYL 100 MCG/2 ML INJECTION (J3010) IV (05:30)
[2017-11-08] MEDS ORDERED: HYDROMORPHONE HCL 0.5 MG/ 0.5 ML SYRINGE (J1170 PER 1) IV (05:30)
[2017-11-08] MEDS ORDERED: PERCOCET 5MG/325MG TAB PO ×2 (05:30→07:15)
[2017-11-08 06:17] LABS: BEDSIDE GLUCOSE 153 MG/DL (70-105)
[2017-11-08 06:25] LABS: BEDSIDE GLUCOSE 140 MG/DL (70-105)
[2017-11-08] MEDS ORDERED: DOCUSATE SODIUM 100 MG CAP PO (07:15)
[2017-11-08] MEDS ORDERED: MEASLES,MUMPS,RUBELLA VACCINE INJ (MMR-II) (90707) SC (07:15)
[2017-11-08] MEDS ORDERED: RHOGAM 300 MCG (1500 IU) INJ (J2790) IM (07:15)
[2017-11-08] MEDS ORDERED: MOM 30ML SUSPENSION UDC PO (07:15)
[2017-11-08 07:37] LABS: BEDSIDE GLUCOSE 124 MG/DL (70-105)
[2017-11-08] MEDS ORDERED: GLUCOSE 4 GM CHEW TABLET PO (07:45)
[2017-11-08] MEDS ORDERED: DEXTROSE 50% 50 ML SYRINGE IV (07:45)
[2017-11-08] MEDS ORDERED: GLUCAGON FOR INJ 1 MG VIAL (J1610) SC (07:45)
[2017-11-08] MEDS: OXYTOCIN DRIP 30 UNITS in APPROPRIATE DILUENT 1 EA IV (08:10)
[2017-11-08] MEDS: HumuLIN N INSULIN (NovoLIN N) PER UNIT SC ×2 (08:58→16:28)
[2017-11-08] MEDS: HumuLIN R (REGULAR) INSULIN (NovoLIN R) **100U/ML** PER UNIT SC ×2 (08:58→16:28)
[2017-11-08] MEDS: PRENATAL VITAMINS CHEWABLE TABLET PO (09:00)
[2017-11-08] MEDS: KETOROLAC 30 MG/ML VIAL (J1885) IV ×3 (11:32→22:48)
[2017-11-08 11:45] LABS: BEDSIDE GLUCOSE 159 MG/DL (70-105)
[2017-11-08] MEDS: HumaLOG INSULIN (NovoLOG) PER UNIT SC ×2 (12:27→16:19)
[2017-11-08] MEDS: LR 1,000 ML IV ×3 (12:31→22:48)
[2017-11-08 16:07] LABS: BEDSIDE GLUCOSE 268 MG/DL (70-105)
[2017-11-08 22:10] LABS: BEDSIDE GLUCOSE 236 MG/DL (70-105)
[2017-11-09 06:38] LABS: BEDSIDE GLUCOSE 215 MG/DL (70-105)
[2017-11-09] MEDS: IBUPROFEN 800 MG TAB PO ×3 (06:38→22:33)
[2017-11-09] MEDS: LABETALOL 100 MG TAB PO ×2 (06:49→21:22)
[2017-11-09 07:06] LABS: HEMATOCRIT 23.6 % (36.0-47.0); MEAN CORPUSCULAR HEMOGLOBIN 27.9 pg (27.0-33.0); MEAN CORPUSCULAR HGB CONC 35.6 g/dl (32.0-36.5); MEAN CORPUSCULAR VOLUME 78.4 fl (80.0-96.0); PLATELET COUNT, AUTOMATED 118 10^3/uL (150-450); RED BLOOD COUNT 3.01 10^6/uL (4.00-5.40); RED CELL DISTRIBUTION WIDTH 14.2 % (11.5-14.5); WHITE BLOOD COUNT 14.6 10^3/uL (4.0-10.0)
[2017-11-09 07:11] LABS: HEMOGLOBIN 8.4 g/dl (12.0-15.5)
[2017-11-09 07:30] LABS: ALT/SGPT 15 U/L (12-78); AST/SGOT 32 U/L (7-37); BILIRUBIN,TOTAL 0.3 MG/DL (0.2-1.0); GLOMERULAR FILTRATION RATE > 60.0 (>60); LDH LACTATE DEHYDROGENASE 258 U/L (84-246); URIC ACID 8.8 MG/DL (2.6-6.0)
[2017-11-09] MEDS: HumuLIN N INSULIN (NovoLIN N) PER UNIT SC ×2 (08:50→17:30)
[2017-11-09] MEDS: PRENATAL VITAMINS CHEWABLE TABLET PO (08:50)
[2017-11-09] MEDS: HumuLIN R (REGULAR) INSULIN (NovoLIN R) **100U/ML** PER UNIT SC ×2 (08:50→17:30)
[2017-11-09] MEDS: HumaLOG INSULIN (NovoLOG) PER UNIT SC ×4 (09:02→21:00)
[2017-11-09] MEDS: INFLUENZA QUADRIVALENT PF VACCINE 0.5ML SYRINGE (90686) IM (10:01)
[2017-11-09] MEDS: ADACEL/BOOSTRIX VACCINE (DIPHTH/PERTUSS/ACELL/TETANUS)0.5ML SYR (90715) IM (10:03)
[2017-11-09 11:43] LABS: BEDSIDE GLUCOSE 167 MG/DL (70-105)
[2017-11-09 16:24] LABS: BEDSIDE GLUCOSE 59 MG/DL (70-105)
[2017-11-09 18:06] LABS: BEDSIDE GLUCOSE 65 MG/DL (70-105)
[2017-11-09 20:29] LABS: BEDSIDE GLUCOSE 80 MG/DL (70-105)
[2017-11-09 22:42] LABS: BEDSIDE GLUCOSE 146 MG/DL (70-105)
[2017-11-10 02:31] LABS: BEDSIDE GLUCOSE 211 MG/DL (70-105)
[2017-11-10] MEDS: PERCOCET 5MG/325MG TAB PO (02:35)
[2017-11-10] MEDS: IBUPROFEN 800 MG TAB PO ×3 (06:24→23:00)
[2017-11-10 08:01] LABS: BEDSIDE GLUCOSE 309 MG/DL (70-105)
[2017-11-10] MEDS: HumuLIN N INSULIN (NovoLIN N) PER UNIT SC ×2 (08:34→17:30)
[2017-11-10] MEDS: HumuLIN R (REGULAR) INSULIN (NovoLIN R) **100U/ML** PER UNIT SC ×2 (08:34→17:30)
[2017-11-10] MEDS: HumaLOG INSULIN (NovoLOG) PER UNIT SC ×4 (08:35→21:00)
[2017-11-10] MEDS: PRENATAL VITAMINS CHEWABLE TABLET PO (08:42)
[2017-11-10] MEDS: LABETALOL 200 MG TAB PO ×2 (08:43→21:14)
[2017-11-10 10:07] LABS: BEDSIDE GLUCOSE 278 MG/DL (70-105)
[2017-11-10 12:57] LABS: BEDSIDE GLUCOSE 206 MG/DL (70-105)
[2017-11-10] MEDS: PROMETHAZINE 25 MG TAB PO ×2 (13:01→19:36)
[2017-11-10 17:41] LABS: BEDSIDE GLUCOSE 50 MG/DL (70-105)
[2017-11-10 19:53] LABS: BEDSIDE GLUCOSE 97 MG/DL (70-105)
[2017-11-10] MEDS ORDERED: PILL CRUSHER/CUTTER 1 EACH XX (20:15)
[2017-11-10] MEDS: FAMOTIDINE 20 MG TAB PO (21:09)
[2017-11-10 21:55] LABS: BEDSIDE GLUCOSE 116 MG/DL (70-105)
[2017-11-11 04:27] LABS: BEDSIDE GLUCOSE 30 MG/DL (70-105)
[2017-11-11 04:59] LABS: BEDSIDE GLUCOSE 56 MG/DL (70-105)
[2017-11-11] MEDS: IBUPROFEN 800 MG TAB PO ×3 (07:00→23:00)
[2017-11-11] MEDS ORDERED: PILL CRUSHER/CUTTER 1 EACH XX (07:15)
[2017-11-11] MEDS: HumaLOG INSULIN (NovoLOG) PER UNIT SC ×4 (07:30→21:00)
[2017-11-11] MEDS: LABETALOL 100 MG TAB PO ×2 (08:55→22:03)
[2017-11-11] MEDS: FAMOTIDINE 20 MG TAB PO ×2 (08:56→21:00)
[2017-11-11] MEDS: PRENATAL VITAMINS CHEWABLE TABLET PO (09:00)
[2017-11-11 09:02] LABS: BEDSIDE GLUCOSE 81 MG/DL (70-105)
[2017-11-11 12:03] LABS: BEDSIDE GLUCOSE 120 MG/DL (70-105)
[2017-11-11] MEDS: NIFEdipine 30 MG XL TAB PO (14:46)
[2017-11-11 18:13] LABS: BEDSIDE GLUCOSE 164 MG/DL (70-105)
[2017-11-11 22:27] LABS: BEDSIDE GLUCOSE 77 MG/DL (70-105)
[2017-11-12 06:20] LABS: BEDSIDE GLUCOSE 314 MG/DL (70-105)
[2017-11-12] MEDS: HumaLOG INSULIN (NovoLOG) PER UNIT SC ×4 (06:30→21:00)
[2017-11-12] MEDS: IBUPROFEN 800 MG TAB PO ×3 (07:00→23:00)
[2017-11-12] MEDS: NIFEdipine 30 MG XL TAB PO (08:12)
[2017-11-12] MEDS: LABETALOL 100 MG TAB PO (08:13)
[2017-11-12 09:14] LABS: BEDSIDE GLUCOSE 194 MG/DL (70-105)
[2017-11-12] MEDS: FAMOTIDINE 20 MG TAB PO ×2 (09:16→21:00)
[2017-11-12] MEDS: PRENATAL VITAMINS CHEWABLE TABLET PO (09:16)
[2017-11-12 13:20] LABS: BEDSIDE GLUCOSE 214 MG/DL (70-105)
[2017-11-12] MEDS: LABETALOL 200 MG TAB PO ×2 (14:01→21:00)
[2017-11-12 16:14] LABS: HEMATOCRIT 25.6 % (36.0-47.0); MEAN CORPUSCULAR HEMOGLOBIN 27.5 pg (27.0-33.0); MEAN CORPUSCULAR HGB CONC 35.2 g/dl (32.0-36.5); MEAN CORPUSCULAR VOLUME 78.3 fl (80.0-96.0); PLATELET COUNT, AUTOMATED 155 10^3/uL (150-450); RED BLOOD COUNT 3.27 10^6/uL (4.00-5.40); RED CELL DISTRIBUTION WIDTH 14.7 % (11.5-14.5); WHITE BLOOD COUNT 9.8 10^3/uL (4.0-10.0)
[2017-11-12 16:34] LABS: ALBUMIN 2.1 GM/DL (3.2-5.2); ALKALINE PHOSPHATASE 113 U/L (45-117); ALT/SGPT 23 U/L (12-78); ANION GAP 8 MEQ/L (8-16); AST/SGOT 21 U/L (7-37); BILIRUBIN,TOTAL 0.4 MG/DL (0.2-1.0); BLOOD UREA NITROGEN 8 MG/DL (7-18); CALCIUM LEVEL 8.2 MG/DL (8.5-10.1); CARBON DIOXIDE LEVEL 28 MEQ/L (21-32); CHLORIDE LEVEL 107 MEQ/L (98-107); GLOMERULAR FILTRATION RATE > 60.0 (>60); GLUCOSE, FASTING 158 MG/DL (70-100); POTASSIUM SERUM 3.6 MEQ/L (3.5-5.1); SODIUM LEVEL 143 MEQ/L (136-145); TOTAL PROTEIN 5.6 GM/DL (6.4-8.2)
[2017-11-12 17:33] LABS: BEDSIDE GLUCOSE 134 MG/DL (70-105)
[2017-11-12] MEDS: HumuLIN R (REGULAR) INSULIN (NovoLIN R) **100U/ML** PER UNIT SC (18:18)
[2017-11-12] MEDS: HumuLIN N INSULIN (NovoLIN N) PER UNIT SC (18:18)
[2017-11-12 21:19] LABS: BEDSIDE GLUCOSE 205 MG/DL (70-105)
[2017-11-13] MEDS: IBUPROFEN 800 MG TAB PO ×2 (06:30→09:34)
[2017-11-13] MEDS: HumaLOG INSULIN (NovoLOG) PER UNIT SC (07:30)
[2017-11-13] MEDS: HumuLIN N INSULIN (NovoLIN N) PER UNIT SC (07:30)
[2017-11-13] MEDS: HumuLIN R (REGULAR) INSULIN (NovoLIN R) **100U/ML** PER UNIT SC (07:38)
[2017-11-13 09:18] LABS: BEDSIDE GLUCOSE 105 MG/DL (70-105)
[2017-11-13] MEDS: PRENATAL VITAMINS CHEWABLE TABLET PO (09:33)
[2017-11-13] MEDS: NIFEdipine 30 MG XL TAB PO (09:34)
[2017-11-13] MEDS: FAMOTIDINE 20 MG TAB PO (09:35)
[2017-11-13] MEDS: LABETALOL 200 MG TAB PO (09:35)
== END 2017-11-13 11:25 | disposition home or self-care (01) | DRG 540 ==
LOC: M LDO 14:16 → M LDI 11-08 01:52 → M OBS 11-08 07:13
PROC: 10D00Z1 Extraction of Products of Conception, Low, Open Approach (ICD-10-PCS; principal; 2017-11-08 03:46)
DX: O24.12 Pre-existing type 2 diabetes mellitus, in childbirth (principal); O60.14X0 Preterm labor third trimester with preterm delivery third trimester, not applicable or unspecified; E11.65 Type 2 diabetes mellitus with hyperglycemia; O14.14 Severe pre-eclampsia complicating childbirth; O36.8330 Maternal care for abnormalities of the fetal heart rate or rhythm, third trimester, not applicable or unspecified; Z3A.35 35 weeks gestation of pregnancy; O21.8 Other vomiting complicating pregnancy; D57.3 Sickle-cell trait; Z79.4 Long term (current) use of insulin; F43.23 Adjustment disorder with mixed anxiety and depressed mood; O90.6 Postpartum mood disturbance; Z37.0 Single live birth; O99.02 Anemia complicating childbirth; O99.344 Other mental disorders complicating childbirth; R11.2 Nausea with vomiting, unspecified

== ENCOUNTER → 2018-03-16 | Outpatient (REF) | payer OTHER, MEDICAID ==
[~2018-03-16] MED LIST changes: +HUMA100I5 SC; +IBUP1TAB7 PO; +INSUN; +INSUR; +LABE20TAB PO; +NOVOINJ12 SUBQ; +NOVOINJ13; +PERCOCET PO; +PRENTAB40 PO; +PROC30TA PO
== END ==
LOC: M SFHCLERA 18:39
PROVIDERS: ATTEND Nurse Practitioner Family
DX: R82.90 Unspecified abnormal findings in urine (principal)

== ENCOUNTER → 2018-06-02 | Outpatient (REF) | payer OTHER, MEDICAID ==
[2018-06-02 21:39] LABS: CHLAMYDIA DNA AMPLIFICATION NEGATIVE (NEGATIVE); GC DNA AMPLIFICATION NEGATIVE (NEGATIVE)
== END ==
LOC: M SFHCLERA 16:08
PROVIDERS: ATTEND Nurse Practitioner Family
DX: R30.0 Dysuria (principal)

== ENCOUNTER 2018-08-14 21:15 | Emergency (ER) | payer MEDICAID, OTHER ==
[~2018-08-14] VITALS: Ht 160 cm; Wt 61.4 kg
[2018-08-14] MEDS ORDERED: LANTINJ4 SC (21:33)
[2018-08-14] MEDS ORDERED: NOVOINJ3 SC (21:33)
[2018-08-14] MEDS ORDERED: INSULANT SC (21:33)
[2018-08-14 21:57] LABS: VENOUS BASE EXCESS -1.3 (-2.0-2.0); VENOUS HCO3 25.3 MEQ/L (23.0-27.0); VENOUS PARTIAL PRESSURE CO2 50.2 mmHg (38.0-50.0); VENOUS PARTIAL PRESSURE O2 49.8 mmHg (30.0-50.0); VENOUS STANDARD HCO3 23.1 MEQ/L; VENOUS TOTAL CO2 26.8 MEQ/L (24.0-28.0)
[2018-08-14 22:00] LABS: BASO % 0.5 % (0.0-1.0); EOS # 0.1 10^3/uL (0.0-0.50); HEMATOCRIT 32.1 % (36.0-47.0); HEMOGLOBIN 11.2 g/dl (12.0-15.5); LYMPH # 2.6 10^3/uL (1.5-6.5); LYMPH % 42.7 % (24.0-44.0); MEAN CORPUSCULAR HEMOGLOBIN 26.5 pg (27.0-33.0); MEAN CORPUSCULAR HGB CONC 34.9 g/dl (32.0-36.5); MEAN CORPUSCULAR VOLUME 76.1 fl (80.0-96.0); MONO # 0.4 10^3/uL (0.0-0.8); MONO % 6.3 % (0.0-5.0); NEUTROPHILS # 2.9 10^3/uL (1.8-7.7); NEUTROPHILS % 48.3 % (36.0-66.0); PLATELET COUNT, AUTOMATED 196 10^3/uL (150-450); RED BLOOD COUNT 4.22 10^6/uL (4.00-5.40); WHITE BLOOD COUNT 6.1 10^3/uL (4.0-10.0)
[2018-08-14 22:18] LABS: OSMOLALITY SERUM 320 MOSM/KG (275-295)
[2018-08-14 22:27] LABS: HEMOGLOBIN A1c 10.2 %
[2018-08-14 22:33] LABS: ACETONE/KETONE 9.33 MG/DL (<2.81); ALBUMIN 3.6 GM/DL (3.2-5.2); ALT/SGPT 16 U/L (12-78); BILIRUBIN,DIRECT 0.1 MG/DL (0.0-0.2); BILIRUBIN,TOTAL 0.3 MG/DL (0.2-1.0); BLOOD UREA NITROGEN 18 MG/DL (7-18); CALCIUM LEVEL 8.4 MG/DL (8.5-10.1); CARBON DIOXIDE LEVEL 26 MEQ/L (21-32); CHLORIDE LEVEL 99 MEQ/L (98-107); CREATININE FOR GFR 1.23 MG/DL (0.55-1.30); GLOMERULAR FILTRATION RATE > 60.0 (>60); GLUCOSE, FASTING 693 MG/DL (70-100); MAGNESIUM LEVEL 1.9 MG/DL (1.8-2.4); PHOSPHORUS LEVEL 4.1 MG/DL (2.5-4.9); POTASSIUM SERUM 4.2 MEQ/L (3.5-5.1); SODIUM LEVEL 135 MEQ/L (136-145); TOTAL PROTEIN 7.4 GM/DL (6.4-8.2)
[2018-08-14] MEDS ORDERED: HumuLIN R (REGULAR) INSULIN (NovoLIN R) **100U/ML** PER UNIT IV STA (22:54)
[2018-08-14] MEDS ORDERED: NS 1,000 ML IV ONE (23:00)
[2018-08-15] MEDS ORDERED: LABETALOL HCL 100 MG/20 ML VIAL IV STA (00:05)
[2018-08-15 01:12] LABS: VENOUS BASE EXCESS -1.7 (-2.0-2.0); VENOUS HCO3 23.1 MEQ/L (23.0-27.0); VENOUS O2 SATURATION 98.7 % (60.0-80.0); VENOUS PARTIAL PRESSURE CO2 39.3 mmHg (38.0-50.0); VENOUS PARTIAL PRESSURE O2 152.7 mmHg (30.0-50.0); VENOUS PH 7.387 UNITS (7.330-7.430); VENOUS STANDARD HCO3 23.1 MEQ/L; VENOUS TOTAL CO2 24.3 MEQ/L (24.0-28.0)
[2018-08-15 01:42] LABS: BLOOD UREA NITROGEN 16 MG/DL (7-18); CARBON DIOXIDE LEVEL 27 MEQ/L (21-32); CHLORIDE LEVEL 109 MEQ/L (98-107); GLOMERULAR FILTRATION RATE > 60.0 (>60); GLUCOSE, FASTING 317 MG/DL (70-100); POTASSIUM SERUM 3.8 MEQ/L (3.5-5.1); SODIUM LEVEL 142 MEQ/L (136-145)
[2018-08-15 02:30] VITALS: BP 145/93
== END 2018-08-15 03:09 | disposition home or self-care (01) ==
LOC: M ED 21:15
DX: E10.65 Type 1 diabetes mellitus with hyperglycemia (principal); E78.5 Hyperlipidemia, unspecified; D57.3 Sickle-cell trait; Z79.4 Long term (current) use of insulin

== ENCOUNTER 2019-03-17 00:40 | Emergency (ER) | payer OTHER, SELFPAY ==
[~2019-03-17] VITALS: Ht 160 cm; Wt 59.6 kg
[~2019-03-17 00:40] MED LIST changes: +LANTINJ4 SC; +NOVOINJ3 SC
[2019-03-17] MEDS ORDERED: NS 1,000 ML IV ONE (01:00)
[2019-03-17 01:21] LABS: BASO % 0.3 % (0.0-1.0); EOS # 0.1 10^3/uL (0.0-0.5); EOS % 0.9 % (0.0-3.0); HEMATOCRIT 34.4 % (36.0-47.0); HEMOGLOBIN 11.8 g/dl (12.0-15.5); LYMPH # 1.5 10^3/uL (1.5-5.0); LYMPH % 15.3 % (24.0-44.0); MEAN CORPUSCULAR HGB CONC 34.3 g/dl (32.0-36.5); MEAN CORPUSCULAR VOLUME 75.8 fl (80.0-96.0); MONO # 0.4 10^3/uL (0.0-0.8); MONO % 3.9 % (0.0-5.0); NEUTROPHILS # 7.6 10^3/uL (1.5-8.5); NEUTROPHILS % 79.3 % (36.0-66.0); PLATELET COUNT, AUTOMATED 195 10^3/uL (150-450); RED BLOOD COUNT 4.54 10^6/uL (4.00-5.40); WHITE BLOOD COUNT 9.6 10^3/uL (4.0-10.0)
[2019-03-17 01:22] LABS: APPEARANCE, URINE CLEAR (CLEAR); BACTERIA, URINE AUTO NEGATIVE (NEGATIVE); BILIRUBIN, URINE AUTO NEGATIVE (NEGATIVE); BLOOD, URINE BLOOD 1+ (NEGATIVE); COLOR, URINE YELLOW (YELLOW); GLUCOSE, URINE (UA) AUTO 3+ mg/dL (NEGATIVE); KETONE, URINE AUTO TRACE mg/dL (NEGATIVE); LEUKOCYTE ESTERASE, URINE AUTO NEGATIVE (NEGATIVE); NITRITE, URINE AUTO NEGATIVE (NEGATIVE); PROTEIN, URINE AUTO 2+ mg/dL (NEGATIVE); RBC, URINE AUTO 10 /HPF (0-3); SPECIFIC GRAVITY URINE AUTO 1.026 (1.002-1.035); SQUAMOUS EPITHELIAL CELL UR AU 1 /HPF (0-6); WBC, URINE AUTO 13 /HPF (0-3)
[2019-03-17 01:43] LABS: HCG, SERUM QUALITATIVE NEGATIVE (NEGATIVE)
[2019-03-17 01:45] LABS: ALBUMIN 3.6 GM/DL (3.2-5.2); ALT/SGPT 16 U/L (12-78); BILIRUBIN,DIRECT 0.1 MG/DL (0.0-0.2); BILIRUBIN,TOTAL 0.5 MG/DL (0.2-1.0); BLOOD UREA NITROGEN 20 MG/DL (7-18); CALCIUM LEVEL 9.3 MG/DL (8.5-10.1); CARBON DIOXIDE LEVEL 26 MEQ/L (21-32); CHLORIDE LEVEL 108 MEQ/L (98-107); CREATININE FOR GFR 1.26 MG/DL (0.55-1.30); GLOMERULAR FILTRATION RATE > 60.0 (>60); GLUCOSE, FASTING 142 MG/DL (70-100); LIPASE 71 U/L (73-393); POTASSIUM SERUM 3.9 MEQ/L (3.5-5.1); SODIUM LEVEL 140 MEQ/L (136-145); TOTAL PROTEIN 7.1 GM/DL (6.4-8.2)
[2019-03-17 01:46] VITALS: BP 128/78
[2019-03-17 01:54] LABS: INFLUENZA A AMPLIFICATION NEGATIVE (NEGATIVE); INFLUENZA B AMPLIFICATION NEGATIVE (NEGATIVE)
[2019-03-17] MEDS ORDERED: cefTRIAXone SOD 1 GM in D5W MINI-BAG PLUS 50 ML IV ONE (02:15)
[2019-03-17] MEDS ORDERED: BACT800T5 PO (03:25)
== END 2019-03-17 03:41 | disposition home or self-care (01) ==
LOC: M ED 00:40
DX: N39.0 Urinary tract infection, site not specified (principal); D57.3 Sickle-cell trait; E11.9 Type 2 diabetes mellitus without complications; Z79.4 Long term (current) use of insulin; Z79.899 Other long term (current) drug therapy
CPT/HCPCS: 80048; 80076; 81001; 83690; 84703; 85025; 87040; 87086; 87502; 96361; 96365; 99284; J0696

== ENCOUNTER → 2020-02-12 | Outpatient (REF) | payer OTHER ==
[~2020-02-12] MED LIST changes: +BACT800T5 PO
[2020-03-06 09:43] LABS: MAU/CREAT RATIO 739.2 MCG/MG (0.0-30.0)
== END ==
LOC: M LAB REF 12:50
PROVIDERS: ATTEND Nurse Practitioner Family
DX: E10.65 Type 1 diabetes mellitus with hyperglycemia (principal)

== ENCOUNTER 2021-01-14 18:01 | Emergency (ER) | payer OTHER ==
[~2021-01-14] VITALS: Ht 160 cm; Wt 58.2 kg
[2021-01-14 18:01] VITALS: BP 113/65
[2021-01-14] MEDS ORDERED: BASA100I (18:09)
--- OUTSIDE RECORDS SUMMARY | 2021-01-14 18:28 | CCD ---
Author Author [facility] Organization [facility] Address Unknown Phone Unavailable Care Team Providers Care Marketing Mgr Name Role Phone Pelaez, Cecil PA Unavailable Unavailable Pelaez, Cecil PA Unavailable Unavailable Pelaez, Cecil PA Unavailable Unavailable Pelaez, Cecil PA Unavailable Unavailable Pelaez, Cecil PA Unavailable Unavailable Pelaez, Cecil PA Unavailable Unavailable Pelaez, Cecil PA Unavailable Unavailable Pelaez, Cecil PA Unavailable Unavailable Pelaez, Cecil PA Unavailable Unavailable Pelaez, Cecil PA Unavailable Unavailable Pelaez, Cecil PA Unavailable Unavailable Pelaez, Cecil PA Unavailable Unavailable Pelaez, Cecil PA Unavailable Unavailable VanessaKris salamanca LINUX SYSTEMS ADMINISTRATOR-C Unavailable Unavailabl e Kris MendezP-C Unavailable Unavailabl e Kris Mendezyce LINUX SYSTEMS ADMINISTRATOR-C Unavailable Unavailabl e Vanessa, Kris W Meryl LINUX SYSTEMS ADMINISTRATOR-C Unavailable Unavailabl e Vanessa, Kris W Meryl LINUX SYSTEMS ADMINISTRATOR-C Unavailable Unavailabl e Vanessa, Kris W Meryl LINUX SYSTEMS ADMINISTRATOR-C Unavailable Unavailabl e Vanessa, Kris Wene LINUX SYSTEMS ADMINISTRATOR-C Unavailable Unavailabl e Vanessa, Kris W Meryl LINUX SYSTEMS ADMINISTRATOR-C Unavailable Unavailabl e Vanessa, Kris W Meryl LINUX SYSTEMS ADMINISTRATOR-C Unavailable Unavailabl e Vanessa, Kris W Meryl LINUX SYSTEMS ADMINISTRATOR-C Unavailable Unavailabl e Vanessa, Sophie W Meryl LINUX SYSTEMS ADMINISTRATOR-C Unavailable Unavailabl e Vanessa, Kris W Meryl LINUX SYSTEMS ADMINISTRATOR-C Unavailable Unavailabl e Vanessa, Kris W Meryl LINUX SYSTEMS ADMINISTRATOR-C Unavailable Unavailabl e Vanessa, Kris W Meryl LINUX SYSTEMS ADMINISTRATOR-C Unavailable Unavailabl e Vanessa, Kris W Meryl LINUX SYSTEMS ADMINISTRATOR-C Unavailable Unavailabl e Vanessa, Kris Sheth LINUX SYSTEMS ADMINISTRATOR-C Unavailable Unavailabl e Vanessa, Sophie W Meryl LINUX SYSTEMS ADMINISTRATOR-C Unavailable Unavailabl e Vanessa, Kris W Meryl LINUX SYSTEMS ADMINISTRATOR-C Unavailable Unavailabl e Vnaessa, Kris W Meryl LINUX SYSTEMS ADMINISTRATOR-C Unavailable Unavailabl e Vanessa, Kris W Meryl LINUX SYSTEMS ADMINISTRATOR-C Unavailable Unavailabl e Vanessa, oSphie W Meryl LINUX SYSTEMS ADMINISTRATOR-C Unavailable Unavailabl e Vanessa, Regarabella W Meryl LINUX SYSTEMS ADMINISTRATOR-C Unavailable Unavailabl e Vanessa, Regarabella W Meryl LINUX SYSTEMS ADMINISTRATOR-C Unavailable Unavailabl e Vanessa, Regina W Meryl LINUX SYSTEMS ADMINISTRATOR-C Unavailable Unavailabl e Vanessa, Regarabella W Meryl LINUX SYSTEMS ADMINISTRATOR-C Unavailable Unavailabl e Vanessa, Regarabella W Meryl LINUX SYSTEMS ADMINISTRATOR-C Unavailable Unavailabl e Vanessa, Regarabella W Meryl LINUX SYSTEMS ADMINISTRATOR-C Unavailable Unavailabl e Vanessa, Regarabella W Meryl LINUX SYSTEMS ADMINISTRATOR-C Unavailable Unavailabl e Vanessa, Regartur Sheth LINUX SYSTEMS ADMINISTRATOR-C Unavailable Unavailabl e Vanessa, Kris Orozcoyce LINUX SYSTEMS ADMINISTRATOR-C Unavailable Unavailabl e Vanessa, Kris Sheth LINUX SYSTEMS ADMINISTRATOR-C Unavailable Unavailabl e Vanessa, Kris Orozcoyce LINUX SYSTEMS ADMINISTRATOR-C Unavailable Unavailabl e OSBALDO, B IRIS SHIPPING HAND Unavailable Unavailable OSBALDO, B IRIS SHIPPING HAND Unavailable Unavailable OSBALDO, B IRIS SHIPPING HAND Unavailable Unavailable OSBALDO, B IRIS SHIPPING HAND Unavailable Unavailable OSBALDO, B IRIS SHIPPING HAND Unavailable Unavailable OSBALDO, B IRIS SHIPPING HAND Unavailable Unavailable OSBALDO, B IRIS SHIPPING HAND Unavailable Unavailable OSBALDO, B IRIS SHIPPING HAND Unavailable Unavailable OSBALDO, B IRIS SHIPPING HAND Unavailable Unavailable OSBALDO, B IRIS SHIPPING HAND Unavailable Unavailable OSBALDO, B IRIS SHIPPING HAND Unavailable Unavailable OSBALDO, B IRIS SHIPPING HAND Unavailable Unavailable OSBALDO, B IRIS SHIPPING HAND Unavailable Unavailable OSBALDO, B IRIS SHIPPING HAND Unavailable Unavailable OSBALDO, B IRIS SHIPPING HAND Unavailable Unavailable OSBALDO, B IRIS SHIPPING HAND Unavailable Unavailable OSBALDO, B IRIS SHIPPING HAND Unavailable Unavailable OSBALDO, B IRIS SHIPPING HAND Unavailable Unavailable OSBALDO, B IRIS SHIPPING HAND Unavailable Unavailable OSBALDO, B IRIS SHIPPING HAND Unavailable Unavailable OSBALDO, B IRIS SHIPPING HAND Unavailable Unavailable OSBALDO, B IRIS SHIPPING HAND Unavailable Unavailable OSBALDO, B IRIS SHIPPING HAND Unavailable Unavailable OSBALDO, B IRIS SHIPPING HAND Unavailable Unavailable SOBALDO, B IRIS SHIPPING HAND Unavailable Unavailable OSBALDO, B IRIS SHIPPING HAND Unavailable Unavailable OSBALDO, B IRIS SHIPPING HAND Unavailable Unavailable OSBALDO, B IRIS SHIPPING HAND Unavailable Unavailable OSBALDO, B IRIS SHIPPING HAND Unavailable Unavailable OSBALDO, B IRIS SHIPPING HAND Unavailable Unavailable OSBALDO, B IRIS SHIPPING HAND Unavailable Unavailable OSBALDO, B IRIS SHIPPING HAND Unavailable Unavailable OSBALDO, B IRIS SHIPPING HAND Unavailable Unavailable OSBALDO, B IRSI SHIPPING HAND Unavailable Unavailable OSBALDO, B IRIS SHIPPING HAND Unavailable Unavailable OSBALDO, B IRIS SHIPPING HAND Unavailable Unavailable OSBALDO, B IRIS SHIPPING HAND Unavailable Unavailable OSBALDO, B IRIS SHIPPING HAND Unavailable Unavailable OSBALDO, B IRIS SHIPPING HAND Unavailable Unavailable OSBALDO, B IRIS SHIPPING HAND Unavailable Unavailable OSBALDO, B IRIS SHIPPING HAND Unavailable Unavailable OSBALDO, B IRIS SHIPPING HAND Unavailable Unavailable OSBALDO, B IRIS SHIPPING HAND Unavailable Unavailable OSBALDO, B IRIS SHIPPING HAND Unavailable Unavailable OSBALDO, B IRIS SHIPPING HAND Unavailable Unavailable OSBALDO, B IRIS SHIPPING HAND Unavailable Unavailable OSBALDO, B IRIS SHIPPING HAND Unavailable Unavailable OSBALDO, B IRIS SHIPPING HAND Unavailable Unavailable OSBALDO, B IRIS SHIPPING HAND Unavailable Unavailable OSBALDO, B IRIS SHIPPING HAND Unavailable Unavailable OSBALDO, B IRIS SHIPPING HAND Unavailable Unavailable OSBALDO, B IRIS SHIPPING HAND Unavailable Unavailable OSBALDO, B IRIS SHIPPING HAND Unavailable Unavailable OSBALDO, B IRIS SHIPPING HAND Unavailable Unavailable OSBALDO, B IRIS SHIPPING HAND Unavailable Unavailable OSBALDO, B IRIS SHIPPING HAND Unavailable Unavailable OSBALDO, B IRIS SHIPPING HAND Unavailable Unavailable OSBALDO, B IRIS SHIPPING HAND Unavailable Unavailable OSBALDO, B IRIS SHIPPING HAND Unavailable Unavailable OSBALDO, B IRIS SHIPPING HAND Unavailable Unavailable OSBALDO, B IRIS SHIPPING HAND Unavailable Unavailable OSBALDO, B IRIS SHIPPING HAND Unavailable Unavailable HODGES, G EDWARD RPA Unavailable Unavailable HODGES, G EDWARD RPA Unavailable Unavailable HODGES, G EDWARD RPA Unavailable Unavailable HODGES, G EDWARD RPA Unavailable Unavailable HODGES, G EDWARD RPA Unavailable Unavailable HODGES, G EDWARD RPA Unavailable Unavailable HODGES, G EDWARD RPA Unavailable Unavailable HODGES, G EDWARD RPA Unavailable Unavailable HODGES, G EDWARD RPA Unavailable Unavailable HODGES, G EDWARD RPA Unavailable Unavailable HODGES, G EDWARD RPA Unavailable Unavailable HODGES, G EDWARD RPA Unavailable Unavailable HODGES, G EDWARD RPA Unavailable Unavailable HODGES, G EDWARD RPA Unavailable Unavailable HODGES, G EDWARD RPA Unavailable Unavailable HODGES, G EDWARD RPA Unavailable Unavailable HODGES, G EDWARD RPA Unavailable Unavailable HODGES, G EDWARD RPA Unavailable Unavailable HODGES, G EDWARD RPA Unavailable Unavailable HODGES, G EDWARD RPA Unavailable Unavailable HODGES, G EDWARD RPA Unavailable Unavailable HODGES, G EDWARD RPA Unavailable Unavailable HODGES, G EDWARD RPA Unavailable Unavailable HODGES, G EDWARD RPA Unavailable Unavailable HODGES, G EDWARD RPA Unavailable Unavailable HODGES, G EDWARD RPA Unavailable Unavailable HODGES, G EDWARD RPA Unavailable Unavailable HODGES, G EDWARD RPA Unavailable Unavailable HODGES, G EDWARD RPA Unavailable Unavailable HODGES, G EDWARD RPA Unavailable Unavailable HODGES, G EDWARD RPA Unavailable Unavailable HODGES, G EDWARD RPA Unavailable Unavailable HODGES, G EDWARD RPA Unavailable Unavailable HODGES, G EDWARD RPA Unavailable Unavailable HODGES, G EDWARD RPA Unavailable Unavailable HODGES, G EDWARD RPA Unavailable Unavailable HODGES, G EDWARD RPA Unavailable Unavailable LINWOOD, RAFAEL PA Unavailable Unavailable LINWOOD, RAFAEL PA Unavailable Unavailable LINWOOD, RAFAEL PA Unavailable Unavailable LINWOOD, RAFAEL PA Unavailable Unavailable LINWOOD, RAFAEL PA Unavailable Unavailable LINWOOD, RAFAEL PA Unavailable Unavailable LINWOOD, RAFAEL PA Unavailable Unavailable LINWOOD, RAFAEL PA Unavailable Unavailable LINWOOD, RAFAEL PA Unavailable Unavailable LINWOOD, RAFAEL PA Unavailable Unavailable LINWOOD, RAFAEL PA Unavailable Unavailable LINWOOD, RAFAEL PA Unavailable Unavailable LINWOOD, RAFAEL PA Unavailable Unavailable LINWOOD, RAFAEL PA Unavailable Unavailable LINWOOD, RAFAEL PA Unavailable Unavailable LINWOOD, RAFAEL PA Unavailable Unavailable LINWOOD, RAFAEL PA Unavailable Unavailable LINWOOD, RAFAEL PA Unavailable Unavailable LINWOOD, RAFAEL PA Unavailable Unavailable LINWOOD, RAFAEL PA Unavailable Unavailable LINWOOD, RAFAEL PA Unavailable Unavailable LINWOOD, RAFAEL PA Unavailable Unavailable LINWOOD, RAFAEL PA Unavailable Unavailable LINWOOD, RAFAEL PA Unavailable Unavailable LINWOOD, RAFAEL PA Unavailable Unavailable LINWOOD, RAFAEL PA Unavailable Unavailable LINWOOD, RAFAEL PA Unavailable Unavailable LINWOOD, RAFAEL PA Unavailable Unavailable LINWOOD, RAFAEL PA Unavailable Unavailable LINWOOD, RAFAEL PA Unavailable Unavailable LINWOOD, RAFAEL PA Unavailable Unavailable LINWOOD, RAFAEL PA Unavailable Unavailable LINWOOD, RAFAEL PA Unavailable Unavailable LINWOOD, RAFAEL PA Unavailable Unavailable LINWOOD, RAFAEL PA Unavailable Unavailable LINWOOD, RAFAEL PA Unavailable Unavailable LINWOOD, RAFAEL PA Unavailable Unavailable LINWOOD, RAFAEL PA Unavailable Unavailable Devin, M Halina PA-C Unavailable Unavailable Devin, M Halina PA-C Unavailable Unavailable Devin, M Halina PA-C Unavailable Unavailable Devin, M Halina PA-C Unavailable Unavailable Devin, M Halina PA-C Unavailable Unavailable Devin, M Halina PA-C Unavailable Unavailable Devin, M Halina PA-C Unavailable Unavailable Devin, M Halina PA-C Unavailable Unavailable Devin, M Halina PA-C Unavailable Unavailable Devin, M Halina PA-C Unavailable Unavailable Devin, M Halina PA-C Unavailable Unavailable Devin, M Halina PA-C Unavailable Unavailable Devin, M Halina PA-C Unavailable Unavailable Devin, M Halina PA-C Unavailable Unavailable Devin, M Halina PA-C Unavailable Unavailable Devin, M Halina PA-C Unavailable Unavailable Devin, M Halina PA-C Unavailable Unavailable Devin, M Halina PA-C Unavailable Unavailable Devin, M Halina PA-C Unavailable Unavailable Devin, M Halina PA-C Unavailable Unavailable Devin, M Halina PA-C Unavailable Unavailable Devin, M Halina PA-C Unavailable Unavailable Devin, M Halina PA-C Unavailable Unavailable Devin, M Halina PA-C Unavailable Unavailable Devin, M Halina PA-C Unavailable Unavailable Devin, M Halina PA-C Unavailable Unavailable Devin, M Halina PA-C Unavailable Unavailable Devin, M Halina PA-C Unavailable Unavailable Devin, M Halina PA-C Unavailable Unavailable Devin, M Halina PA-C Unavailable Unavailable Devin, M Halina PA-C Unavailable Unavailable Devin, M Halina PA-C Unavailable Unavailable Devin, M Halina PA-C Unavailable Unavailable Devin, M Halina PA-C Unavailable Unavailable Devin, M Halina PA-C Unavailable Unavailable Devin, M Halina PA-C Unavailable Unavailable Devin, M Halina PA-C Unavailable Unavailable Devin, M Halina PA-C Unavailable Unavailable [place], Andrea Eran LINUX SYSTEMS ADMINISTRATOR Unavailable Unavailable Mac, Andrea Eran LINUX SYSTEMS ADMINISTRATOR Unavailable Unavailable [place], Andrea Eran LINUX SYSTEMS ADMINISTRATOR Unavailable Unavailable Mac, Andrea Eran LINUX SYSTEMS ADMINISTRATOR Unavailable Unavailable [place], Andrea Eran LINUX SYSTEMS ADMINISTRATOR Unavailable Unavailable [place], Andrea Eran LINUX SYSTEMS ADMINISTRATOR Unavailable Unavailable Mac, Andrea Eran LINUX SYSTEMS ADMINISTRATOR Unavailable Unavailable [place], Andrea Eran LINUX SYSTEMS ADMINISTRATOR Unavailable Unavailable [place], Andrea Eran LINUX SYSTEMS ADMINISTRATOR Unavailable Unavailable Mac, Andrea Eran LINUX SYSTEMS ADMINISTRATOR Unavailable Unavailable Mac, Andrea Eran LINUX SYSTEMS ADMINISTRATOR Unavailable Unavailable [place], Andrea Eran LINUX SYSTEMS ADMINISTRATOR Unavailable Unavailable [place], Andrea Eran LINUX SYSTEMS ADMINISTRATOR Unavailable Unavailable [place], Andrea Eran LINUX SYSTEMS ADMINISTRATOR Unavailable Unavailable ROMEROANDREA CHERY LINUX SYSTEMS ADMINISTRATOR-C, MSN Unavailable Unavailab ANDREA Lr LINUX SYSTEMS ADMINISTRATOR-C, MSN Unavailable Unavailab ANDREA Lr LINUX SYSTEMS ADMINISTRATOR-C, MSN Unavailable Unavailab ANDREA Lr LINUX SYSTEMS ADMINISTRATOR-C, MSN Unavailable Unavailab le ROMERO, ANDREA ROM LINUX SYSTEMS ADMINISTRATOR-C, MSN Unavailable Unavailab le ROMERO, ANDREA ROM LINUX SYSTEMS ADMINISTRATOR-C, MSN Unavailable Unavailab le ROMERO, ANDREA ROM LINUX SYSTEMS ADMINISTRATOR-C, MSN Unavailable Unavailab le ROMERO, ANDREA ROM LINUX SYSTEMS ADMINISTRATOR-C, MSN Unavailable Unavailab le ROMERO, ANDREA ROM LINUX SYSTEMS ADMINISTRATOR-C, MSN Unavailable Unavailab le ROMERO, ANDREA ROM LINUX SYSTEMS ADMINISTRATOR-C, MSN Unavailable Unavailab le ROMERO, ANDREA ROM LINUX SYSTEMS ADMINISTRATOR-C, MSN Unavailable Unavailab le ROMERO, ANDREA ROM LINUX SYSTEMS ADMINISTRATOR-C, MSN Unavailable Unavailab le ROMERO, ANDREA ROM LINUX SYSTEMS ADMINISTRATOR-C, MSN Unavailable Unavailab le ROMERO, ANDREA ROM LINUX SYSTEMS ADMINISTRATOR-C, MSN Unavailable Unavailab le ROMERO, ANDREA ROM LINUX SYSTEMS ADMINISTRATOR-C, MSN Unavailable Unavailab le ROMERO, ANDREA ROM LINUX SYSTEMS ADMINISTRATOR-C, MSN Unavailable Unavailab le ROMERO, ANDREA ROM LINUX SYSTEMS ADMINISTRATOR-C, MSN Unavailable Unavailab le ROMERO, ANDREA ROM LINUX SYSTEMS ADMINISTRATOR-C, MSN Unavailable Unavailab le ROMERO, ANDREA ROM LINUX SYSTEMS ADMINISTRATOR-C, MSN Unavailable Unavailab le ROMERO, ANDREA ROM LINUX SYSTEMS ADMINISTRATOR-C, MSN Unavailable Unavailab le ROMERO, ANDREA ROM LINUX SYSTEMS ADMINISTRATOR-C, MSN Unavailable Unavailab le ROMERO, ANDREA ROM LINUX SYSTEMS ADMINISTRATOR-C, MSN Unavailable Unavailab le ROMERO, ANDREA ROM LINUX SYSTEMS ADMINISTRATOR-C, MSN Unavailable Unavailab le ROMERO, ANDREA ROM LINUX SYSTEMS ADMINISTRATOR-C, MSN Unavailable Unavailab le ROMERO, ANDREA ROM LINUX SYSTEMS ADMINISTRATOR-C, MSN Unavailable Unavailab le ROMERO, ANDREA ROM LINUX SYSTEMS ADMINISTRATOR-C, MSN Unavailable Unavailab le ROMERO, ANDREA ROM LINUX SYSTEMS ADMINISTRATOR-C, MSN Unavailable Unavailab le ROMERO, ANDREA ROM LINUX SYSTEMS ADMINISTRATOR-C, MSN Unavailable Unavailab le ROMERO, ANDREA ROM LINUX SYSTEMS ADMINISTRATOR-C, MSN Unavailable Unavailab le ROMERO, ANDREA ROM LINUX SYSTEMS ADMINISTRATOR-C, MSN Unavailable Unavailab le ROMERO, ANDREA ROM LINUX SYSTEMS ADMINISTRATOR-C, MSN Unavailable Unavailab le ROMERO, ANDREA ROM LINUX SYSTEMS ADMINISTRATOR-C, MSN Unavailable Unavailab le ROMERO, ANDREA ROM LINUX SYSTEMS ADMINISTRATOR-C, MSN Unavailable Unavailab le ROMERO, ANDREA ROM LINUX SYSTEMS ADMINISTRATOR-C, MSN Unavailable Unavailab le ROMERO, ANDREA ROM LINUX SYSTEMS ADMINISTRATOR-C, MSN Unavailable Unavailab le ROMERO, ANDREA ROM LINUX SYSTEMS ADMINISTRATOR-C, MSN Unavailable Unavailab le ROMERO, ANDREA ROM LINUX SYSTEMS ADMINISTRATOR-C, MSN Unavailable Unavailab le ROMERO, ANDREA ROM LINUX SYSTEMS ADMINISTRATOR-C, MSN Unavailable Unavailab le ROMERO, ANDREA ROM LINUX SYSTEMS ADMINISTRATOR-C, MSN Unavailable Unavailab le ROMERO, ANDREA ROM LINUX SYSTEMS ADMINISTRATOR-C, MSN Unavailable Unavailab le ROMERO, ANDREA ROM LINUX SYSTEMS ADMINISTRATOR-C, MSN Unavailable Unavailab le ROMERO, ANDREA ROM LINUX SYSTEMS ADMINISTRATOR-C, MSN Unavailable Unavailab le ROMERO, ANDREA ROM LINUX SYSTEMS ADMINISTRATOR-C, MSN Unavailable Unavailab le ROMERO, ANDREA ROM LINUX SYSTEMS ADMINISTRATOR-C, MSN Unavailable Unavailab le ROMERO, ANDREA ROM LINUX SYSTEMS ADMINISTRATOR-C, MSN Unavailable Unavailab le Mike M Christopher PA-C Unavailable Unavailable Mckeon M Christopher PA-C Unavailable Unavailable Mckeon M Christopher PA-C Unavailable Unavailable Mckeon, M Christopher PA-C Unavailable Unavailable Mckeon M Christopher PA-C Unavailable Unavailable Mckeon, M Christopher PA-C Unavailable Unavailable Mckeon, M Christopher PA-C Unavailable Unavailable Mckeon, M Christopher PA-C Unavailable Unavailable Mckeon, M Christopher PA-C Unavailable Unavailable Mckeon, M Christopher PA-C Unavailable Unavailable Mckeon, M Christopher PA-C Unavailable Unavailable Mckeon, M Christopher PA-C Unavailable Unavailable Mckeon, M Christopher PA-C Unavailable Unavailable Mckeon, M Christopher PA-C Unavailable Unavailable Mckeon, M Christopher PA-C Unavailable Unavailable Mckeon, M Christopher PA-C Unavailable Unavailable Mckeon, M Christopher PA-C Unavailable Unavailable Mckeon, M Christopher PA-C Unavailable Unavailable Mckeon, M Christopher PA-C Unavailable Unavailable Mckeon, M Christopher PA-C Unavailable Unavailable Mckeon, M Christopher PA-C Unavailable Unavailable [place]ke[place], Violette Julito PA-C Unavailable Unavailable [place], Violette Julito PA-C Unavailable Unavailable [place], Violette Julito PA-C Unavailable Unavailable [place]ke[place], Violette Julito PA-C Unavailable Unavailable Mckeon, Violette Julito PA-C Unavailable Unavailable Re-disclosure Warning The records that you are about to access may contain information from federally-assisted alcohol or drug abuse programs. If such information is present, then the following federally mandated warning applies: This information has been disclosed to you from records protected by federal confidentiality rules (42 CFR part 2). The federal rules prohibit you from making any further disclosure of this information unless further disclosure is expressly permitted by the written consent of the person to whom it pertains or as otherwise permitted by 42 CFR part 2. A general authorization for the release of medical or other information is NOT sufficient for this purpose. The Federal rules restrict any use of the information to criminally investigate or prosecute any alcohol or drug abuse patient.The records that you are about to access may contain highly sensitive health information, the redisclosure of which is protected by Article 27-F of the [facility] Public Health law. If you continue you may have access to information: Regarding HIV / AIDS; Provided by facilities licensed or operated by the [facility] Office of Mental Health; or Provided by the [facility] Office for People With Developmental Disabilities. If such information is present, then the following [facility] mandated warning applies: This information has been disclosed to you from confidential records which are protected by state law. State law prohibits you from making any further disclosure of this information without the specific written consent of the person to whom it pertains, or as otherwise permitted by law. Any unauthorized further disclosure in violation of state law may result in a fine or mcc sentence or both. A general authorization for the release of medical or other information is NOT sufficient authorization for further disc losure. Allergies and Adverse Reactions Type Description Substance Reaction Status Data Source(s ) Propensity to adverse reactions NO KNOWN ALLERGIES NO KNOWN ALLERGIES [facility] Family History Family Member Name Family Member Gender Family Member Status Date o f Status Description Data Source(s) Unknown Unknown Problem [facility] ([facility]) Encounters Encounter Providers Location Date Indications Data Source(s ) Outpatient Attender: Eran TERRAZAS 11/26/2020 05:21:00 PM [facility] Outpatient Attender: Eran Watts FNPReferrer: Bere Beltran PA-C EMERGENCY ROOM-CLN2 11/26/2020 04:30:00 PM EDT - 11/26/2020 04:30:00 PM EDT [facility] Outpatient [facility] 11/26/2020 12:00:00 AM EDT eCW1 ([facility]) Outpatient Attender: Julito Mckeon PA-C 11/01/2020 09:49:52 AM EDT - 11/01/2020 12:59:30 PM EDT [facility] ([facility]) Outpatient Attender: Meryl ANDRE 09/24/2020 09:36:0 0 AM EDT [facility] Admission cancelled. Disregard status an d admitted date. Outpatient [facility] 09/14/2020 12:00:00 AM EDT eCW1 ([facility]) Outpatient [facility] 09/14/2020 12:00:00 AM EDT eCW1 ([facility]) Outpatient Attender: PETTY HODGES RPA 09/02 11:45:52 AM EDT - 09/02/2020 01:06:04 PM EDT [facility] ([facility] ) Outpatient [facility] 08/13/2020 12:00:00 AM EDT eCW1 ([facility]) Outpatient Attender: Halina Beltran PA-C 05/28/2020 08:10 :00 AM EDT [facility] Outpatient [facility] 05/28/2020 12:00:00 AM EDT eCW1 ([facility]) Outpatient Attender: IRIS ROBLERO NP Physical Therapy 02:30:00 PM EST [facility] ([facility]) Outpatient Attender: IRIS ROBLERO NP Physical Therapy 02:30:00 PM EST [facility] ([facility]) OFFICE OUTPATIENT NEW 60 MINUTES Attender: IRIS ROBLERO NP Ph ysical Therapy 01/13/2020 12:45:00 PM EST [facility] ([facility]) Outpatient Attender: RAFAEL CHANDRA 01/02/2020 12:00:0 0 AM [facility] Outpatient [facility] 12/19/2019 12:00:00 AM EST eCW1 ([facility]) Outpatient Attender: Halina Heardferrer: Halina Beltran PA-C EMERGENCY [facility] 12/18/2019 01:50:00 PM EST - 12/18/2019 01:50:00 PM [facility] Outpatient [facility] 12/18/2019 12:00:00 AM EST eCW1 ([facility]) Outpatient [facility] 12/18/2019 12:00:00 AM EST eCW1 ([facility]) Emergency Attender: Cecil Jodraner: Bere Beltran PA-C EMERGENCY ROOM-ER 09/12/2019 02:03:00 PM EDT - 09/12/2019 03:50:00 PM [facility] Patient discharged. Outpatient Attender: Halina Brunnerrer: Halina Beltran PA-C [facility] 09/12/2019 01:00:00 PM EDT - 09/12/2019 01:00:00 PM [facility] Outpatient Attender: Halina Beltran PA-C 0 07/10/2019 11:35:00 AM EDT - 08/13/2019 11:06:00 AM [facility] Patient discharged. Outpatient Attender: Halina Beltran PA-C 0 07/05/2019 01:29:00 PM EDT - 08/13/2019 11:06:00 AM [facility] Patient discharged. Outpatient Attender: Halina Jade: [place] ANDRE[place] [facility] 06/28/2019 11:00:00 AM EDT - 06/28/2019 11:00:00 AM [facility] Medications Medication Brand Name Start Date Product Form Dose Route Admi nistrative Instructions Pharmacy Instructions Status Indications Reaction Description Data Source(s) 12 HR cetirizine hydrochloride 5 MG / Ps eudoephedrine Hydrochloride 120 MG Extended Release Oral Tablet [Zyrtec-D] ZyrTEC-D Allergy & Congestion 5-120 MG ZyrTEC-D Allergy & Congestion 5-120 MG 11/26/2020 12:00:00 AM EDT 1.0 {tablet_as_needed} active ZyrTEC-D Jaden rgy & Congestion 5-120 MG eCW1 ([facility]) Flonase Allergy Relief 50 MCG/ACT Flonase Allergy Relief 50 MCG/ACT 11/26/2020 12:00:00 AM EDT 1.0 {spray_in_each_nostril} acti ve Flonase Allergy Relief 50 MCG/ACT eCW1 ([facility]) Freestyle Kindra 14 Day/Sensor/Flash Monitoring System 02/12/2020 12:00:00 AM EST active [facility] ([facility]) 3 ML Insulin, Aspart, Human 100 UNT/ML Pen Injector [NovoLog ] Novolog Flexpen 01/13/2020 12:00:00 AM EST active MEDENT ([facility]) Insurance Providers Payer name Policy type / Coverage type Policy ID Covered alliance party ID Covered alliance party's relationship to portillo Policy Portillo Plan Information [facility] MEDICAID [id number] S [id number] [facility] [facility] MEDICAID [id number] S [id number] [place] I [id number] Self [id number] [facility] [facility] MEDICAID [id number] S [id number] [place] EXCHANGE U [id number] Self [id number] [place] [employer] [id number] Self [id number] [place] [employer] [id number] Self [id number] [facility] MEDICAID [id number] S [id number] ANSI-Commercial [id number] ANSI-Commercial [id number] MEDICAID [id number] [facility] [place] [id number] ANSI-Commercial [id number] ANSI-Commercial [id number] ANSI-Commercial [id number] ANSI-Commercial [id number] ANSI-Commercial [id number] [place] [id number] 400 ANSI-Medicaid [id number] ANSI-Commercial [id number] ANSI-Commercial [id number] ANSI-Medicaid [id number] ANSI-Commercial [id number] ANSI-Commercial [id number] ANSI-Commercial [id number] ANSI-Medicaid [id number] ANSI-Commercial [id number] ANSI-Commercial [id number] ANSI-Commercial [id number] ANSI-Commercial [id number] ANSI-Commercial [id number] ANSI-Commercial [id number] ANSI-Commercial [id number] ANSI-Commercial [id number] [place] [id number] S [id number] [facility] MEDICAID [id number] S [id number] [facility] [place] MAN -PHYSICIAN [id number] 18 [id number] [facility] [facility] [place] [id number] 18 [id number] SELF PAY ONLY UNAVAILABLE SP UNAV AILABLE SELF PAY ONLY - SP1 UNAVAILABLE SP UNAVAILABLE [facility] [facility] [place] [id number] S [id number] PGBA [facility] PGBA [facility] [id number] Self JENNI BAILEY PGBA [facility] [place] Medicaid/CHP/FHP Commercial [id number] Self PGBA [facility] [id number] FA2 [id number] [facility]AL [facility] [id number] CHILD [id number] [place] [id number] SP [id number] 400 [facility] [id number] CHILD [id number] [facility] COMMERCIAL [id number] S [id number] [facility] COMMERCIAL [id number] S [id number] [facility] MEDICAID [id number] S [id number] [facility] MEDICAID [id number] S [id number] [facility] MEDICAID [id number] S [id number] SELF PAY ONLY [id number] SP [id number] Problems, Conditions, and Diagnoses Code Display Name Description Problem Type Effective Dates Data Source(s) J34.89 Other specified disorders of nose and na bette sinuses OTHER SPECIFIED DISORDERS OF NOSE AND NASAL SINUSE Diagnosis 11/26/2020 04:30:00 PM ED [facility] J06.9 Acute upper respiratory infection, unspe cified ACUTE UPPER RESPIRATORY INFECTION, UNSPECIFIED Diagnosis 11/26/2020 04:30:00 PM EDT [facility] ital Z02.89 Encounter for other administrative exami nations ENCOUNTER FOR OTHER ADMINISTRATIVE EXAMINATIONS Diagnosis 05/28/2020 08:10:00 AM [facility] Z28.21 Immunization not carried out because of patient refusal IMMUNIZATION NOT CARRIED OUT BECAUSE OF PATIENT RE Diagnosis 12/18/2019 01:50:00 PM [facility] I10 Essential (primary) hypertension ESSENTIAL (PRIMARY) H YPERTENSION Diagnosis 12/18/2019 01:50:00 PM [facility] E78.00 PURE HYPERCHOLESTEROLEMIA, UNSPECIFIED P URE HYPERCHOLESTEROLEMIA, UNSPECIFIED Diagnosis 12/18/2019 01:50:00 PM EST [facility] Z11.3 Encounter for screening for infections with a predominantly sexual mode of transmission ENCNTR SCREEN FOR INFECTIONS W SEXL MODE Diagnosis 12/18/2019 01:50:00 PM [facility] Z11.4 Encounter for screening for human immuno deficiency virus [HIV] ENCOUNTER FOR SCREENING FOR HUMAN IMMUNO Diagnosis 12/18/2019 01:50:00 PM EST [facility] E11.65 [id number] Type 2 diabetes mellitus with hyperglycem ia Problem 12/18/2019 12:00:00 AM EST eCW1 ([facility]) Surgeries/Procedures Procedure Description Date Indications Data Source(s) Diabetic Foot Exam 01/13/2020 12:00:00 AM EST MEDENT ([facility]) Results ID Date Data Source [id number] 11/26/2020 05:00:00 PM EDT [facility] Name Value Range Interpretation Code Description Data Claudia rce(s) Supporting Document(s) COVID-19 NEGATIVE [facility] This lab was ordered by [facility] and reported by [facility]. ID Date Data Source [id number] 11/26/2020 05:24:00 PM EDT [facility] neeru Name Value Range Interpretation Code Description Data Claudia rce(s) Supporting Document(s) COVID-19 NEGATIVE NEGATIVE [facility] Negative results should be treated as pr esumptive and, ifinconsistent with clinical signs and symptoms or necessaryfor patient management, should be tested with differentauthorized or cleared molecular tests.Negative results do not preclude SARS-CoV-2 infection andshould not be used as the sole basis for patient managementdecisions.This is a rapid molecular isothermal nucleic acidamplification technology (NAAT) in vitro diagnostic testutilizing a loop mediated isothermal amplification (LAMP)test with nicking endonuclease amplification reaction(NEAR) intended for the qualitative detection of nucleica pacheco from the SARS-CoV-2 viral RNA in direct nasal,nasopharyngeal or throat swabs from individuals who aresuspected of COVID-19.Results are for the indentification of SARS-CoV-2 RNA. ZryDQKI-BjT-4 RNA is generally detectable in respiratorysamples during the actue phase of infection. ID Date Data Source COVID-19 IN-HOUSE 11/26/2020 12:00:00 AM EDT eCW1 ([facility]) Name Value Range Interpretation Code Description Data Claudia rce(s) Supporting Document(s) NEGATIVE NEGATIVE COVID-19 eCW1 ([facility]) ID Date Data Source [id number] 11/01/2020 12:15:00 PM EDT [facility] Name Value Range Interpretation Code Description Data Claudia rce(s) Supporting Document(s) SARS-CoV-2 RNA Resp Ql MISAEL+probe NOT DETECTED [facility] This lab was ordered by [facility] moses and reported by REJI Soriano. ID Date Data Source [id number] 09/02/2020 12:45:00 PM EDT [facility] Name Value Range Interpretation Code Description Data Claudia rce(s) Supporting Document(s) SARS-CoV-2 RNA Resp Ql MISAEL+probe NOT DETECTED [facility] This lab was ordered by [facility] and reported by RE[facility] Soriano. ID Date Data Source [id number] 02/13/2020 04:00:00 PM EST MED[facility] ([facility]) Name Value Range Interpretation Code Description Data Claudia rce(s) Supporting Document(s) Creatinine [Mass/volume] in Urine 112.0 mg/dL MED[facility] ([facility]) Microalbumin [Mass/volume] in Urine 828.0 mg/L MED[facility] ([facility]) Microalbumin/Creatinine [Mass Ratio] in Urine 739.2 MCG/MG 0.0-30.0 MED[facility] ([facility]) THE [employer] STATES THAT MICROALBUMINURIA IS PRESENT IF THE MICROALBUMIN/CREATININE RATIO EXCEEDS 30 MCG/MG. THE THRESHOLD FOR CLINICAL ALBUMINURIA IS REACHED AT 300 MCG/MG. THE CLASSIFICATION OF A PATIENT SHOULD BE BASED UPON AT LEAST 2 OF 3 ABNORMAL RESULTS ON SPECIMENS COLLECTED WITHIN A 3 TO 6 MONTH TIME FRAME. ID Date Data Source [id number] 02/12/2020 04:00:00 PM EST MEDENT ([facility]) Name Value Range Interpretation Code Description Data Claudia rce(s) Supporting Document(s) Creatinine [Mass/volume] in Urine 112.0 mg/dL [facility] ([facility]) Microalbumin [Mass/volume] in Urine 828.0 mg/L MED[facility] ([facility] ) Microalbumin/Creatinine [Mass Ratio] in Urine 739.2 MCG/MG 0.0-30.0 MEDENT ([facility]) THE [employer] STATES THAT MICROALBUMINURIA IS PRESENT IF THE MICROALBUMIN/CREATININE RATIO EXCEEDS 30 MCG/MG. THE THRESHOLD FOR CLINICAL ALBUMINURIA IS REACHED AT 300 MCG/MG. THE CLASSIFICATION OF A PATIENT SHOULD BE BASED UPON AT LEAST 2 OF 3 ABNORMAL RESULTS ON SPECIMENS COLLECTED WITHIN A 3 TO 6 MONTH TIME FRAME. ID Date Data Source [id number]/GC AMPLIFICATION 12/23/2019 10:01:38 AM EST eCW1 ( [facility]) Name Value Range Interpretation Code Description Data Claudia rce(s) Supporting Document(s) Negative NEISSERIA GONORRHOEAE, NA A eCW1 ([facility]) Negative CHLAMYDIA TRACHOMATIS, NA A eCW1 ([facility]) ID Date Data Source [id number] 12/22/2019 06:35:00 AM EST [facility] Name Value Range Interpretation Code Description Data [facility] rce(s) Supporting Document(s) CHLAMYDIA TRACHOMATIS, MISAEL Negative Negative [facility] NEISSERIA GONORRHOEAE, MISAEL Negative Negative [facility] Performed at: RN - [facility] [address] [id number] Director: Nancy Norris MD, Phone: [phone] ID Date Data Source [id number] 12/22/2019 06:35:00 AM EST [facility] Name Value Range Interpretation Code Description Data Claudia rce(s) Supporting Document(s) Chlamydia/GC Amplification Lab [facility] TESTS RESULT FLAG UNI TS REF RANGE LAB C trachomatis, MISAEL Negative (Negative) 01N gonorrhoeae, MISAEL Negative (Negative) 01 FLAG LEGEND: L-Low Normal,H-High Normal,LL-Alert Low,HH-Alert High <-Panic Low,>-Panic High,A-Abnormal,AA-Critical Abnormal Performed at:[address] [facility] [address] [id number] Nancy Norris MD, ID Date Data Source [id number] 12/25/2019 04:05:00 PM EST [facility] Name Value Range Interpretation Code Description Data Claudia rce(s) Supporting Document(s) HIV Screen 4th Generation wRfx Non Reactive Non Reactive [facility] ID Date Data Source [id number] 12/19/2019 04:09:00 PM EST [facility] Name Value Range Interpretation Code Description Data Claudia rce(s) Supporting Document(s) HIV SCREEN 4TH GEN Non Reactive Non Reactive [facility] Performed at: RN - [facility] [address] [id number] Director: Nancy Norris MD, Phone: [phone] ID Date Data Source [id number] 12/18/2019 03:25:00 PM EST [facility] Name Value Range Interpretation Code Description Data Claudia rce(s) Supporting Document(s) ESTIMATED AVERAGE GLUCOSE 266.1 mg/dL [facility] ID Date Data Source [id number] 12/18/2019 03:25:00 PM EST [facility] Name Value Range Interpretation Code Description Data Claudia rce(s) Supporting Document(s) HGBA1C 10.9 % 3.8-5.[address] [facility] Diabetic > or = to 6.5%Prediabetes 5.7-6 .4%Normal <5.7 ID Date Data Source [id number] 12/18/2019 03:25:00 PM [facility] l CALLED GLUCOSE TO [facility] AT 1524 Name Value Range Interpretation Code Description Data Claudia rce(s) Supporting Document(s) CHOLESTEROL 186 mg/dL 0-200 [facility] TRIGLYCERIDES 52 mg/dL 0-150 [facility] LDL CHOLESTEROL 99 mg/dL 0-100 [facility] HDL CHOLESTEROL 77 mg/dL 40-60 H [facility] CHOL/HDL RATIO 2.4 0.0-5.0 [facility] ID Date Data Source [id number] 12/18/2019 03:25:00 PM [facility] Name Value Range Interpretation Code Description Data Claudia rce(s) Supporting Document(s) GLUCOSE 410 mg/dL 74-106 *H [facility] BLOOD UREA NITROGEN 21 mg/dL 7-18 H [facility] ital CREATININE 1.1 mg/dL 0.6-1.0 H [facility] SODIUM 133 mmol/L 136-145 L [facility] POTASSIUM 5.0 mmol/L 3.5-5.1 [facility] CHLORIDE 98 mmol/L 98-107 [facility] CO2 27 mmol/L 21-32 [facility] CALCIUM 9.3 mg/dL 8.5-10.1 [facility] ANION GAP 8.0 mmol/L 5-12 [facility] GLOMERULAR FILTRATION RATE 61 mL/min [facility] GFR IS CALCULATED IN mL/min/1.73m2 SHAILESH L FUNCTION: >90MILDLY DECREASED: 60-89MILDY TO MODERATELY DECREASED: 45-59 MODERATELY TO SEVERELY DECREASED: 30-44SEVERELY DECREASED: 15-29RENAL FAILURE: <15 AST 16 U/L 15-37 [facility] ALT 25 U/L 12-78 [facility] ALKALINE PHOSPHATASE 54 U/L 46-116 [facility] pital TOTAL BILIRUBIN 0.5 mg/dL 0.2-1.0 [facility] TOTAL PROTEIN 7.3 g/dl 6.4-8.2 [facility] ALBUMIN 3.7 gm/dL 3.4-5.0 [facility] ID Date Data Source [id number] 12/18/2019 03:07:00 [facility] Name Value Range Interpretation Code Description Data Claudia rce(s) Supporting Document(s) WHITE BLOOD COUNT 8.4 K[facility]mm3 4.0-10.0 [facility] 4.26 M/mm3 4.00-5.50 [facility] HEMOGLOBIN 11.2 gm/dL 12.0-16.0 L [facility] HEMATOCRIT 31.6 % 36.0-48.8 L [facility] MEAN CELL VOLUME 74.2 fl 80-96 L [facility] MEAN CORPUSCULAR HEMOGLOBIN 26.3 pg 27.0-31.0 L [facility] MEAN CORPUSCULAR HGB CONC 35.4 g/dl 32.0-36.0 [facility] RED CELL DISTRIBUTION WIDTH 13.0 % 10.0-14.5 [facility] PLATELET COUNT 234 K/mm3 172-450 [facility] ID Date Data Source CBC 12/18/2019 06:16:14 AM EST eCW1 ([facility]) Name Value Range Interpretation Code Description Data Claudia rce(s) Supporting Document(s) 4.44 4.00-5.50 RBC eCW1 ([facility]) 11.7 12.0-16.0 HGB eCW1 ([facility]) 8.4 4.0-10.0 WBC eCW1 ([facility]) 26.4 27.0-31.0 MCH eCW1 ([facility]) 32.6 36.0-48.8 HCT eCW1 ([facility]) 73.4 80-96 MCV eCW1 ([facility]) 35.9 32.0-36.0 MCHC eCW1 ([facility]) 14.0 10.0-14.5 RDW eCW1 ([facility]) 268 172-450 PLT eCW1 ([facility]) 11.2 HEMOGLOBIN eCW1 ([facility]) 4.26 RED BLOOD COUNT eCW1 ([facility]) 8.4 WHITE BLOOD COUNT eCW1 ([facility]) 26.3 MEAN CORPUSCULAR HEMOGLOB IN eCW1 ([facility]) 74.2 MEAN CELL VOLUME eCW1 ([facility]) 31.6 HEMATOCRIT eCW1 ([facility]) 234 PLATELET COUNT eCW1 ([facility]) 13.0 RED CELL DISTRIBUTION WID TH eCW1 ([facility]) 35.4 MEAN CORPUSCULAR HGB CONC eCW1 ([facility]) ID Date Data Source LIPID PROFILE 12/18/2019 06:16:07 AM EST eCW1 ([facility]) Name Value Range Interpretation Code Description Data Claudia rce(s) Supporting Document(s) 186 CHOLESTEROL eCW1 ([facility]) 52 TRIGLYCERIDES eCW1 ([facility]) 77 HDL CHOLESTEROL eCW1 ([facility]) 2.4 CHOL/HDL RATIO eCW1 ([facility]) Cholesterol in LDL [Mass/volume] in Serum or Plasma by calculation 99 LDL CHOLESTEROL eCW1 ([facility]) ID Date Data Source [id number] 12/18/2019 06:16:02 AM EST eCW1 ([facility]) Name Value Range Interpretation Code Description Data Claudia rce(s) Supporting Document(s) Hemoglobin A1c/Hemoglobin.total in Blood by HPLC 10.5 4.5-6.2 HA1C eCW1 ([facility]) 10.8 4.5-6.2 HA1C eCW1 ([facility]) Hemoglobin A1c/Hemoglobin.total in Blood 10.9 HGBA1C eCW1 ([facility]) Procedure Social History Code Duration Value Status Description Data Source(s ) Smoking 11/26/2020 12:00:00 AM EDT Never Smoker completed Never S moker eCW1 ([facility]) Smoking 05/28/2020 12:00:00 AM EDT Never Smoker completed Never S moker eCW1 ([facility]) Smoking 05/28/2020 12:00:00 AM EDT Never Smoker completed Never S moker eCW1 ([facility]) Smoking 05/28/2020 12:00:00 AM EDT Never Smoker completed Never S moker eCW1 ([facility]) Smoking 05/28/2020 12:00:00 AM EDT Never Smoker completed Never S moker eCW1 ([facility]) Smoking 04/10/2020 12:00:00 AM EST Patient has never smoked co mpleted Patient has never smoked MEDENT ([facility]) Smoking 12/18/2019 12:00:00 AM EST Never Smoker completed Never S moker eCW1 ([facility]) Smoking 12/18/2019 12:00:00 AM EST Never Smoker completed Never S moker eCW1 ([facility]) Smoking 12/18/2019 12:00:00 AM EST Never Smoker completed Never S moker eCW1 ([facility]) Vital Signs ID Date Data Source [id number] Name Value Range Interpretation Code Description Data Source(s) Body height 62.75 [in_i] 62.75 [in_i] eCW1 ([facility]) Body weight 138 [lb_av] 138 [lb_av] eCW1 ([facility]) Body mass index (BMI) [Ratio] 24.64 kg/m2 24.64 kg/m2 eCW1 ([facility]) Body temperature 97.5 [degF] 97.5 [degF] eCW1 ( [facility]) Heart rate 98 /min 98 /min eCW1 ([facility]) Respiratory rate 16 /min 16 /min eCW1 ([facility]) Oxygen saturation in Arterial blood by Pulse oximetry 98 % 98 % eCW1 ([facility]) Body height 62.75 [in_i] 62.75 [in_i] eCW1 ([facility]) Body weight 133 [lb_av] 133 [lb_av] eCW1 ([facility]) Body mass index (BMI) [Ratio] 23.75 kg/m2 23.75 kg/m2 eCW1 ([facility]) Body temperature 97.9 [degF] 97.9 [degF] eCW1 ( [facility]) Heart rate 89 /min 89 /min eCW1 ([facility]) Respiratory rate 17 /min 17 /min eCW1 ([facility]) Oxygen saturation in Arterial blood by Pulse oximetry 98 % 98 % eCW1 ([facility]) Body mass index (BMI) [Ratio] 24.0 kg/m2 24.0 k g/m2 MEDENT ([facility]) Diastolic blood pressure 84 mm[Hg] 84 mm[Hg] MEDENT ([facility]) Systolic blood pressure 134 mm[Hg] 134 mm[Hg] M EDENT ([facility] ) Body temperature 96.8 [degF] 96.8 [degF] MEDENT ([facility] Heart rate 109 /min 109 /min MEDENT ([facility] ) Body height 62.8 [in_i] 62.8 [in_i] MEDENT ([facility]) 5'2.80" Body weight 134.38 [lb_av] 134.38 [lb_av] MEDEN T ([facility] ) Oxygen saturation in Arterial blood by Pulse oximetry 99 % 99 % MEDENT ([facility]) Diastolic blood pressure 80 mm[Hg] 80 mm[Hg] MEDENT ([facility]) Systolic blood pressure 124 mm[Hg] 124 mm[Hg] M EDENT ([facility]) Heart rate 103 /min 103 /min MEDENT ([facility]) Body temperature 97.1 [degF] 97.1 [degF] MEDENT ([facility]) Body height 62.8 [in_i] 62.8 [in_i] MEDENT ([facility] 5'2.80" Body weight 136.31 [lb_av] 136.31 [lb_av] MEDEN T ([facility] ) Body mass index (BMI) [Ratio] 24.3 kg/m2 24.3 k g/m2 MEDENT ([facility] ) Oxygen saturation in Arterial blood by Pulse oximetry 97.1 % 97.1 % MEDENT ([facility]) Body height 62.75 [in_i] 62.75 [in_i] eCW1 ([facility]) Body weight 122.0 [lb_av] 122.0 [lb_av] eCW1 ([facility]) Body mass index (BMI) [Ratio] 21.78 kg/m2 21.78 kg/m2 eCW1 ([facility]) Body temperature 98.0 [degF] 98.0 [degF] eCW1 ( [facility]) Heart rate 88 /min 88 /min eCW1 ([facility]) Respiratory rate 18 /min 18 /min eCW1 ([facility]) Oxygen saturation in Arterial blood by Pulse oximetry 98 % 98 % eCW1 ([facility]) Patient Treatment Plan of Care Planned Activity Planned Date Details Description Data Source (s) Flonase Allergy Relief 50 MCG/ACT 11/26/2020 12:00:00 AM EDT eCW1 ([facility]) 12 HR cetirizine hydrochloride 5 MG / Ps eudoephedrine Hydrochloride 120 MG Extended Release Oral Tablet [Zyrtec-D] 11/26/2020 12:00:00 AM EDT eCW1 ([facility])
--- OUTSIDE RECORDS SUMMARY | 2021-01-14 18:28 | CCD ---
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 Name Role Phone Eran Watts Unavailable PROBLEMS Type Condition ICD9-CM Code [id number] Code Onset Dates Condition S tatus W/U Status Risk SNOMED Code Notes Problem Essential hypertension I10 Active confirmed 86904180 Problem Type 1 diabetes mellitus with hyperglycemia E10.65 Active confirmed 440652471333673 Problem Lumbago with sciatica, right side M54.41 Active confirmed 510551412078245 Problem Type 2 diabetes mellitus with hyperglycemia E11.65 Active confirmed 99572087 Problem Pure hypercholesterolemia E78.00 Active confirmed 999864841 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 Z79.4 Activ e confirmed 768658201 Problem Bilateral carpal tunnel syndrome G56.03 Active conf irmed 82432855 Problem Lumbago with sciatica, left side M54.42 Active confirmed [id number] ALLERGIES No Known Allergies ENCOUNTERS from 1994 to 2020-11-30 Encounter Location Date Provider Diagnosis [address] [address] Nov, Eran Watts Upper respiratory virus J06.9 and Rhinor jessica J34.89 IMMUNIZATIONS Vaccine Route Administration Date Status Influenza preservative free IM Intramuscular Dec 06, 2018 Adm inistered SOCIAL HISTORY Tobacco Use: Social History Observation Description Date Details (start date - stop date) Never Smoker Sex Assigned At : Social History Observation Description Sex Assigned At Unknown Alcohol Screen Question Answer Notes Did you have a drink containing alcohol in the past year? No Points 0 Interpretation Negative Tobacco Use/Smoking Question Answer Notes Are you a never smoker REASON FOR REFERRAL No Information VITAL SIGNS Height 62.75 in Nov, Weight 138 lbs Nov, BMI 24.64 kg/m2 Nov, Temperature 97.5 degrees Fahrenheit Nov, Heart Rate 98 /min Nov, Respiratory Rate 16 /min Nov, Oximetry 98 % Nov, Blood pressure systolic 124 mmHg Nov, Blood pressure diastolic 74 mmHg Nov, MEDICATIONS Medication SIG (Take, Route, Frequency, Duration) Notes Start Da te End Date Status ZyrTEC-D Allergy & Congestion 5-120 MG 1 tablet as nee ded Orally Once a day for 30 day(s) Nov, Active FreeStyle Lite Test - as directed In Vitro qid for 90 days Active NovoLOG FlexPen 100 UNIT/ML as directed before meals * 150-200= 2 units, 201- 250=4 units, 251-300= 6 units, 301-350= 8 units, 351-400= 10 units Subcutaneous INGRID for 90 days Active free style 4 x day or as needed 4 times a day Aug, Active FreeStyle Lite - as directed Dx:E10.65 for 1 days Aug, Active Basaglar KwikPen 100 UNIT/ML 10 units Subcutaneous BID for 45 days Active Flonase Allergy Relief 50 MCG/ACT 1 spray in each nost ril Nasally Once a day for 30 day(s) Nov, Active BD Pen Needle Short U/F 31G X 8 MM as directed externally 6 times daily for 16 Active Lancets 1 as directed subcutaneously 4 times a day or as n eeded for 90 days Aug, Active BD PEN NEEDLESN SHORT 31 G X 5/16 - - qid and prn for 90 days Active PROCEDURES No Information RESULTS Component Value Reference Range COVID-19 IN-HOUSE Reviewed date:11/27/2020 09:29:32 Interpretation: Performing Lab: COVID-19 NEGATIVE NEGATIVE REASON FOR VISIT sore throat, cough, congestion MEDICAL (GENERAL) HISTORY Type Description Date Medical History Type 1 Diabetes Medical History Renal Insufficiency after an illness Medical History Sickle Cell Trait Medical History related HTN-resolved after pre gnancy Surgical History Tooth extracted-Dr. Ernandez 015 Surgical History 12/08/2017 Hospitalization History DKA 05/2014 Hospitalization History Diabetic related ([facility]) 02/2016 Goals Section No Information Health Concerns No Information MEDICAL EQUIPMENT No Information MENTAL STATUS No Information FUNCTIONAL STATUS No Information ASSESSMENTS Encounter Date Diagnosis Assessment Notes Treatment Notes Treatm ent Clinical Notes Nov, Upper respiratory virus (ICD-10 - J06.9) Encourage plenty of rest, fluids, hot tea with honey, humidifier at night, steamy showers, saline nasal spray/rinses to thin nasal secretions .Use Zyrtec D and Flonase as directed. , All questions and concerns addressed, patient understanding and agreeable to plan. Patient encouraged to follow up at the clinic for any additional or new questions or concerns. Nov, Rhinorrhea (ICD-10 - J34.89) Nov, Other Time spent 15 m ins PLAN OF TREATMENT Medication Medication Name Sig Start Date Stop Date Flonase Allergy Relief 50 MCG/ACT 1 spray in each nost ril Nasally Once a day for 30 day(s) Nov, ZyrTEC-D Allergy & Congestion 5-120 MG 1 tablet as nee ded Orally Once a day for 30 day(s) Nov, Treatment Notes Assessment Notes Clinical Notes Upper respiratory virus Encourage plenty of rest, fl uids, hot tea with honey, humidifier at night, steamy showers, saline nasal spray/rinses to thin nasal secretions .Use Zyrtec D and Flonase as directed. , All questions and concerns addressed, patient understanding and agreeable to plan. Patient encouraged to follow up at the clinic for any additional or new questions or concerns. Insurance Providers Payer Name Payer Address Payer Phone Insured Name Patient Relati onship to Insured Coverage Start Date Coverage End Date [facility] [employer] DEPT [address] [address] [facility] [phone] [place] Living[place] self
--- OUTSIDE RECORDS SUMMARY | 2021-01-15 01:20 | CCD ---
Author Author [facility] Organization [facility] Address Unknown Phone Unavailable Care Team Providers Care Marketing Project Manager Name Role Phone Pelaez, Cecil PA Unavailable [...] Pelaez, Cecil PA Unavailable Unavailable VanessaKris salamanca PSYCHIATRIC NURSING ASSISTANT-C Unavailable Unavailabl e Kris MendezP-C Unavailable Unavailabl e Kris Mendezyce PSYCHIATRIC NURSING ASSISTANT-C Unavailable Unavailabl e Vanessa, Kris W Meryl PSYCHIATRIC NURSING ASSISTANT-C Unavailable Unavailabl e Vanessa, Kris W Meryl PSYCHIATRIC NURSING ASSISTANT-C Unavailable Unavailabl e Vanessa, Kris W Meryl PSYCHIATRIC NURSING ASSISTANT-C Unavailable Unavailabl e Vanessa, Kris Wene PSYCHIATRIC NURSING ASSISTANT-C Unavailable Unavailabl e Vanessa, Kris W Meryl PSYCHIATRIC NURSING ASSISTANT-C Unavailable Unavailabl e Vanessa, Kris W Meryl PSYCHIATRIC NURSING ASSISTANT-C Unavailable Unavailabl e Vanessa, Kris W Meryl PSYCHIATRIC NURSING ASSISTANT-C Unavailable Unavailabl e Vanessa, Sophie W Meryl PSYCHIATRIC NURSING ASSISTANT-C Unavailable Unavailabl e Vanessa, Kris W Meryl PSYCHIATRIC NURSING ASSISTANT-C Unavailable Unavailabl e Vanessa, Kris W Meryl PSYCHIATRIC NURSING ASSISTANT-C Unavailable Unavailabl e Vanessa, Kris W Meryl PSYCHIATRIC NURSING ASSISTANT-C Unavailable Unavailabl e Vanessa, Kris W Meryl PSYCHIATRIC NURSING ASSISTANT-C Unavailable Unavailabl e Vanessa, Kris Sheth PSYCHIATRIC NURSING ASSISTANT-C Unavailable Unavailabl e Vanessa, Sophie W Meryl PSYCHIATRIC NURSING ASSISTANT-C Unavailable Unavailabl e Vanessa, Kris W Meryl PSYCHIATRIC NURSING ASSISTANT-C Unavailable Unavailabl e Vanessa, Kris W Meryl PSYCHIATRIC NURSING ASSISTANT-C Unavailable Unavailabl e Vanessa, Kris W Meryl PSYCHIATRIC NURSING ASSISTANT-C Unavailable Unavailabl e Vanessa, Sophie W Meryl PSYCHIATRIC NURSING ASSISTANT-C Unavailable Unavailabl e Vanessa, Regarabella W Meryl PSYCHIATRIC NURSING ASSISTANT-C Unavailable Unavailabl e Vanessa, Regarabella W Meryl PSYCHIATRIC NURSING ASSISTANT-C Unavailable Unavailabl e Vanessa, Regina W Meryl PSYCHIATRIC NURSING ASSISTANT-C Unavailable Unavailabl e Vanessa, Regarabella W Meryl PSYCHIATRIC NURSING ASSISTANT-C Unavailable Unavailabl e Vanessa, Regarabella W Meryl PSYCHIATRIC NURSING ASSISTANT-C Unavailable Unavailabl e Vanessa, Regarabella W Meryl PSYCHIATRIC NURSING ASSISTANT-C Unavailable Unavailabl e Vanessa, Regarabella W Meryl PSYCHIATRIC NURSING ASSISTANT-C Unavailable Unavailabl e Vanessa, Regartur Sheth PSYCHIATRIC NURSING ASSISTANT-C Unavailable Unavailabl e Vanessa, Kris Orozcoyce PSYCHIATRIC NURSING ASSISTANT-C Unavailable Unavailabl e Vanessa, Kris Sheth PSYCHIATRIC NURSING ASSISTANT-C Unavailable Unavailabl e Vanessa, Kris Orozcoyce PSYCHIATRIC NURSING ASSISTANT-C Unavailable Unavailabl e OSBALDO, B IRIS ENTRY WRITER Unavailable Unavailable OSBALDO, B IRIS ENTRY WRITER Unavailable Unavailable OSBALDO, B IRIS ENTRY WRITER Unavailable Unavailable OSBALDO, B IRIS ENTRY WRITER Unavailable Unavailable OSBALDO, B IRIS ENTRY WRITER Unavailable Unavailable OSBALDO, B IRIS ENTRY WRITER Unavailable Unavailable OSBALDO, B IRIS ENTRY WRITER Unavailable Unavailable OSBALDO, B IRIS ENTRY WRITER Unavailable Unavailable OSBALDO, B IRIS ENTRY WRITER Unavailable Unavailable OSBALDO, B IRIS ENTRY WRITER Unavailable Unavailable OSBALDO, B IRIS ENTRY WRITER Unavailable Unavailable OSBALDO, B IRIS ENTRY WRITER Unavailable Unavailable OSBALDO, B IRIS ENTRY WRITER Unavailable Unavailable OSBALDO, B IRIS ENTRY WRITER Unavailable Unavailable OSBALDO, B IRIS ENTRY WRITER Unavailable Unavailable OSBALDO, B IRIS ENTRY WRITER Unavailable Unavailable OSBALDO, B IRIS ENTRY WRITER Unavailable Unavailable OSBALDO, B IRIS ENTRY WRITER Unavailable Unavailable OSBALDO, B IRIS ENTRY WRITER Unavailable Unavailable OSBALDO, B IRIS ENTRY WRITER Unavailable Unavailable OSBALDO, B IRIS ENTRY WRITER Unavailable Unavailable OSBALDO, B IRIS ENTRY WRITER Unavailable Unavailable OSBALDO, B IRIS ENTRY WRITER Unavailable Unavailable OSBALDO, B IRIS ENTRY WRITER Unavailable Unavailable OSBALDO, B IRIS ENTRY WRITER Unavailable Unavailable OSBALDO, B IRIS ENTRY WRITER Unavailable Unavailable OSBALDO, B IRIS ENTRY WRITER Unavailable Unavailable OSBALDO, B IRIS ENTRY WRITER Unavailable Unavailable OSBALDO, B IRIS ENTRY WRITER Unavailable Unavailable OSBALDO, B IRIS ENTRY WRITER Unavailable Unavailable OSBALDO, B IRIS ENTRY WRITER Unavailable Unavailable OSBALDO, B IRIS ENTRY WRITER Unavailable Unavailable OSBALDO, B IRIS ENTRY WRITER Unavailable Unavailable OSBALDO, B IRIS ENTRY WRITER Unavailable Unavailable OSBALDO, B IRIS ENTRY WRITER Unavailable Unavailable OSBALDO, B IRIS ENTRY WRITER Unavailable Unavailable OSBALDO, B IRIS ENTRY WRITER Unavailable Unavailable OSBALDO, B IRIS ENTRY WRITER Unavailable Unavailable OSBALDO, B IRIS ENTRY WRITER Unavailable Unavailable OSBALDO, B IRIS ENTRY WRITER Unavailable Unavailable OSBALDO, B IRIS ENTRY WRITER Unavailable Unavailable OSBALDO, B IRIS ENTRY WRITER Unavailable Unavailable OSBALDO, B IRIS ENTRY WRITER Unavailable Unavailable OSBALDO, B IRIS ENTRY WRITER Unavailable Unavailable OSBALDO, B IRIS ENTRY WRITER Unavailable Unavailable OSBALDO, B IRIS ENTRY WRITER Unavailable Unavailable OSBALDO, B IRIS ENTRY WRITER Unavailable Unavailable OSBALDO, B IRIS ENTRY WRITER Unavailable Unavailable OSBALDO, B IRIS ENTRY WRITER Unavailable Unavailable OSBALDO, B IRIS ENTRY WRITER Unavailable Unavailable OSBALDO, B IRIS ENTRY WRITER Unavailable Unavailable OSBALDO, B IRIS ENTRY WRITER Unavailable Unavailable OSBALDO, B IRIS ENTRY WRITER Unavailable Unavailable OSBALDO, B IRIS ENTRY WRITER Unavailable Unavailable OSBALDO, B IRIS ENTRY WRITER Unavailable Unavailable OSBALDO, B IRIS ENTRY WRITER Unavailable Unavailable OSBALDO, B IRIS ENTRY WRITER Unavailable Unavailable OSBALDO, B IRIS ENTRY WRITER Unavailable Unavailable OSBALDO, B IRIS ENTRY WRITER Unavailable Unavailable OSBALDO, B IRIS ENTRY WRITER Unavailable Unavailable OSBALDO, B IRIS ENTRY WRITER Unavailable Unavailable OSBALDO, B RIIS ENTRY WRITER Unavailable Unavailable HODGES, G EDWARD RPA Unavailable [...] Unavailable LINWOOD, RAFAEL PA Unavailable Unavailable LINWOOD, RAAFEL PA Unavailable Unavailable LINWOOD, RAFAEL PA Unavailable [...] Unavailable Devin, M Halina PA-C Unavailable Unavailable [place], Andrea Eran PSYCHIATRIC NURSING ASSISTANT Unavailable Unavailable Mac, Andrea Eran PSYCHIATRIC NURSING ASSISTANT Unavailable Unavailable [place], Andrea Eran PSYCHIATRIC NURSING ASSISTANT Unavailable Unavailable Mac, Andrea Eran PSYCHIATRIC NURSING ASSISTANT Unavailable Unavailable [place], Andrea Eran PSYCHIATRIC NURSING ASSISTANT Unavailable Unavailable [place], Andrea Eran PSYCHIATRIC NURSING ASSISTANT Unavailable Unavailable Mac, Andrea Eran PSYCHIATRIC NURSING ASSISTANT Unavailable Unavailable [place], Andrea Eran PSYCHIATRIC NURSING ASSISTANT Unavailable Unavailable [place], Andrea Eran PSYCHIATRIC NURSING ASSISTANT Unavailable Unavailable Mac, Andrea Eran PSYCHIATRIC NURSING ASSISTANT Unavailable Unavailable Mac, Andrea Eran PSYCHIATRIC NURSING ASSISTANT Unavailable Unavailable [place], Andrea Eran PSYCHIATRIC NURSING ASSISTANT Unavailable Unavailable [place], Andrea Eran PSYCHIATRIC NURSING ASSISTANT Unavailable Unavailable [place], Andrea Eran PSYCHIATRIC NURSING ASSISTANT Unavailable Unavailable ROMEROANDREA CHERY PSYCHIATRIC NURSING ASSISTANT-C, MSN Unavailable Unavailab ANDREA Lr PSYCHIATRIC NURSING ASSISTANT-C, MSN Unavailable Unavailab ANDREA Lr PSYCHIATRIC NURSING ASSISTANT-C, MSN Unavailable Unavailab ANDREA Lr PSYCHIATRIC NURSING ASSISTANT-C, MSN Unavailable Unavailab le ROMERO, ANDREA ROM PSYCHIATRIC NURSING ASSISTANT-C, MSN Unavailable Unavailab le ROMERO, ANDREA ROM PSYCHIATRIC NURSING ASSISTANT-C, MSN Unavailable Unavailab le ROMERO, ANDREA ROM PSYCHIATRIC NURSING ASSISTANT-C, MSN Unavailable Unavailab le ROMERO, ANDREA ROM PSYCHIATRIC NURSING ASSISTANT-C, MSN Unavailable Unavailab le ROMERO, ANDREA ROM PSYCHIATRIC NURSING ASSISTANT-C, MSN Unavailable Unavailab le ROMERO, ANDREA ROM PSYCHIATRIC NURSING ASSISTANT-C, MSN Unavailable Unavailab le ROMERO, ANDREA ROM PSYCHIATRIC NURSING ASSISTANT-C, MSN Unavailable Unavailab le ROMERO, ANDREA ROM PSYCHIATRIC NURSING ASSISTANT-C, MSN Unavailable Unavailab le ROMERO, ANDREA ROM PSYCHIATRIC NURSING ASSISTANT-C, MSN Unavailable Unavailab le ROMERO, ANDREA ROM PSYCHIATRIC NURSING ASSISTANT-C, MSN Unavailable Unavailab le ROMERO, ANDREA ROM PSYCHIATRIC NURSING ASSISTANT-C, MSN Unavailable Unavailab le ROMERO, ANDREA ROM PSYCHIATRIC NURSING ASSISTANT-C, MSN Unavailable Unavailab le ROMERO, ANDREA ROM PSYCHIATRIC NURSING ASSISTANT-C, MSN Unavailable Unavailab le ROMERO, ANDREA ROM PSYCHIATRIC NURSING ASSISTANT-C, MSN Unavailable Unavailab le ROMERO, ANDREA ROM PSYCHIATRIC NURSING ASSISTANT-C, MSN Unavailable Unavailab le ROMERO, ANDREA ROM PSYCHIATRIC NURSING ASSISTANT-C, MSN Unavailable Unavailab le ROMERO, ANDREA ROM PSYCHIATRIC NURSING ASSISTANT-C, MSN Unavailable Unavailab le ROMERO, ANDREA ROM PSYCHIATRIC NURSING ASSISTANT-C, MSN Unavailable Unavailab le ROMERO, ANDREA ROM PSYCHIATRIC NURSING ASSISTANT-C, MSN Unavailable Unavailab le ROMERO, ANDREA ROM PSYCHIATRIC NURSING ASSISTANT-C, MSN Unavailable Unavailab le ROMERO, ANDREA ROM PSYCHIATRIC NURSING ASSISTANT-C, MSN Unavailable Unavailab le ROMERO, ANDREA ROM PSYCHIATRIC NURSING ASSISTANT-C, MSN Unavailable Unavailab le ROMERO, ANDREA ROM PSYCHIATRIC NURSING ASSISTANT-C, MSN Unavailable Unavailab le ROMERO, ANDREA ROM PSYCHIATRIC NURSING ASSISTANT-C, MSN Unavailable Unavailab le ROMERO, ANDREA ROM PSYCHIATRIC NURSING ASSISTANT-C, MSN Unavailable Unavailab le ROMERO, ANDREA ROM PSYCHIATRIC NURSING ASSISTANT-C, MSN Unavailable Unavailab le ROMERO, ANDREA ROM PSYCHIATRIC NURSING ASSISTANT-C, MSN Unavailable Unavailab le ROMERO, ANDREA ROM PSYCHIATRIC NURSING ASSISTANT-C, MSN Unavailable Unavailab le ROMERO, ANDREA ROM PSYCHIATRIC NURSING ASSISTANT-C, MSN Unavailable Unavailab le ROMERO, ANDREA ROM PSYCHIATRIC NURSING ASSISTANT-C, MSN Unavailable Unavailab le ROMERO, ANDREA ROM PSYCHIATRIC NURSING ASSISTANT-C, MSN Unavailable Unavailab le ROMERO, ANDREA ROM PSYCHIATRIC NURSING ASSISTANT-C, MSN Unavailable Unavailab le ROMERO, ANDREA ROM PSYCHIATRIC NURSING ASSISTANT-C, MSN Unavailable Unavailab le ROMERO, ANDREA ROM PSYCHIATRIC NURSING ASSISTANT-C, MSN Unavailable Unavailab le ROMERO, ANDREA ROM PSYCHIATRIC NURSING ASSISTANT-C, MSN Unavailable Unavailab le ROMERO, ANDREA ROM PSYCHIATRIC NURSING ASSISTANT-C, MSN Unavailable Unavailab le ROMERO, ANDREA ROM PSYCHIATRIC NURSING ASSISTANT-C, MSN Unavailable Unavailab le ROMERO, ANDREA ROM PSYCHIATRIC NURSING ASSISTANT-C, MSN Unavailable Unavailab le ROMERO, ANDREA ROM PSYCHIATRIC NURSING ASSISTANT-C, MSN Unavailable Unavailab le ROMERO, ANDREA ROM PSYCHIATRIC NURSING ASSISTANT-C, MSN Unavailable Unavailab le ROMERO, ANDREA ROM PSYCHIATRIC NURSING ASSISTANT-C, MSN Unavailable Unavailab le Mike M Christopher PA-C Unavailable Unavailable Mckeon M Christopher PA-C Unavailable Unavailable Mkceon M Christopher PA-C Unavailable Unavailable Mckeon, M Christopher PA-C Unavailable Unavailable Mckeon M Christopher PA-C Unavailable Unavailable Mckeon, M Christopher PA-C Unavailable Unavailable Mckeon, M Christopher PA-C Unavailable Unavailable Mckeon, M Christopher PA-C Unavailable Unavailable Mckeon, M Christopher PA-C Unavailable Unavailable Mckeon, M Christopher PA-C Unavailable Unavailable Mckoen, M Christopher PA-C Unavailable Unavailable Mckeon, M [...] is protected by Article 27-F of the [facility] Public Health law. If you continue you may have access to information: Regarding HIV / AIDS; Provided by facilities licensed or operated by the [facility] Office of Mental Health; or Provided by the [facility] Office for People With Developmental Disabilities. If such information is present, then the following [facility] mandated warning applies: This information [...] law may result in a fine or prison sentence or both. A general authorization for the release of medical or other information is NOT sufficient authorization for further disc losure. Allergies and Adverse Reactions Type Description Substance Reaction Status Data Source(s ) Propensity to adverse reactions NO KNOWN ALLERGIES NO KNOWN ALLERGIES [facility] Family History Family Member Name Family Member Gender Family Member Status Date o f Status Description Data Source(s) Unknown Unknown Problem MEDENT ([facility]) Encounters Encounter Providers Location Date Indications Data Source(s ) Outpatient Attender: Eran TERRAZAS 11/26/2020 05:21:00 PM [facility] Outpatient Attender: Eran Watts FNPReferrer: Bere Beltran PA-C EMERGENCY ROOM-CLN2 11/26/2020 04:30:00 PM EDT - 11/26/2020 04:30:00 PM EDT [facility] Outpatient [facility] 11/26/2020 12:00:00 AM EDT eCW1 ([facility]) Outpatient Attender: Julito Mckeon PA-C 11/01/2020 09:49:52 AM EDT - 11/01/2020 12:59:30 PM EDT [facility]) Outpatient Attender: Meryl ANDRE 09/24/2020 09:36:0 0 AM EDT [facility] Admission cancelled. Disregard status an d admitted date. Outpatient [facility] 09/14/2020 12:00:00 AM EDT eCW1 ([facility]) Outpatient [facility] 09/14/2020 12:00:00 AM EDT eCW1 ([facility]) Outpatient Attender: PETTY HODGES RPA 09/02 11:45:52 AM EDT - 09/02/2020 01:06:04 PM EDT [facility] ([facility] ) Outpatient [facility] 08/13/2020 12:00:00 AM EDT eCW1 ([facility]) Outpatient Attender: Halina Beltran PA-C 05/28/2020 08:10 :00 AM EDT [facility] Outpatient [facility] 05/28/2020 12:00:00 AM EDT eCW1 ([facility]) Outpatient Attender: IRIS ROBLERO NP Physical Therapy 02:30:00 PM EST [facility] ([facility]) Outpatient Attender: IRIS ROBLERO NP Physical Therapy 02:30:00 PM EST [facility] ([facility]) OFFICE OUTPATIENT NEW 60 MINUTES Attender: IRIS ROBLERO NP Ph ysical Therapy 01/13/2020 12:45:00 PM EST [facility] ([facility]) Outpatient Attender: RAFAEL CHANDRA 01/02/2020 12:00:0 0 AM [facility] Outpatient [facility] 12/19/2019 12:00:00 AM EST eCW1 ([facility]) Outpatient Attender: Halina Heardferrer: Halina Beltran PA-C [facility]ERG[facility]Y RO[facility] 12/18/2019 01:50:00 PM EST - 12/18/2019 01:50:00 PM [facility] Outpatient [facility] 12/18/2019 12:00:00 AM EST eCW1 ([facility]) Outpatient [facility] 12/18/2019 12:00:00 AM EST eCW1 ([facility]) Emergency Attender: Cecil Jordaner: Bere Beltran PA-C EMERGENCY ROOM-ER 09/12/2019 02:03:00 PM EDT - 09/12/2019 03:50:00 PM [facility] Patient discharged. Outpatient Attender: Halina Brunnerrer: Halina Beltran PA-C [facility]ER[facility]Y [facility] 09/12/2019 01:00:00 PM EDT - 09/12/2019 01:00:00 PM [facility] Outpatient Attender: Halina Beltran PA-C 0 07/10/2019 11:35:00 AM EDT - 08/13/2019 11:06:00 AM [facility] Patient discharged. Outpatient Attender: Halina Beltran PA-C 0 07/05/2019 01:29:00 PM EDT - 08/13/2019 11:06:00 AM [facility] Patient discharged. Outpatient Attender: Halina Jade: ROM ANDRE, [facility] EMERGENCY ROOM-[facility] 06/28/2019 11:00:00 AM EDT - 06/28/2019 11:00:00 AM [facility] Medications Medication Brand Name Start Date Product [...] Jaden rgy & Congestion 5-120 MG eCW1 ([facility]) Flonase Allergy Relief 50 MCG/ACT Flonase Allergy Relief 50 MCG/ACT 11/26/2020 12:00:00 AM EDT 1.0 {spray_in_each_nostril} acti ve Flonase Allergy Relief 50 MCG/ACT eCW1 ([facility]) Freestyle Kindra 14 Day/Sensor/Flash Monitoring System 02/12/2020 12:00:00 AM EST active [facility] ([facility]) 3 ML Insulin, Aspart, Human 100 UNT/ML Pen Injector [NovoLog ] Novolog Flexpen 01/13/2020 12:00:00 AM EST active [facility] ([facility]) Insurance Providers Payer name Policy type / Coverage type Policy ID Covered alliance party ID Covered alliance party's relationship to portillo Policy Portillo Plan Information [facility] [employer] MEDICAID [id number] S [id number] [employer] [employer] MEDICA[employer] [id number] S [id number] [place] I [id number] Self [id number] [employer] MEDICAID [id number] S [id number] [place] EXCHANGE U [id number] Self [id number] [employer] [id number] Self [id number] [employer]. [id number] Self [id number] [facility] [employer] MEDICAID [id number] S [id number] ANSI-Commercial [id number] ANSI-Commercial [id number] MEDICAID [id number] [facility] [id number] ANSI-Commercial [id number] ANSI-Commercial [id number] ANSI-Commercial [id number] ANSI-Commercial [id number] ANSI-Commercial [id number] [place] [id number] 400 ANSI-Medicaid [id number] ANSI-Commercial [id number] ANSI-Commercial [id number] ANSI-Medicaid [id number] ANSI-Commercial [id number] ANSI-Commercial [id number] ANSI-Commercial [id number] ANSI-Medicaid [id number] ANSI-Commercial [id number] ANSI-Commercial [id number] ANSI-Commercial [id number] ANSI-Commercial [id number] ANSI-Commercial [id number] ANSI-Commercial [id number] ANSI-Commercial [id number] ANSI-Commercial [id number] [place] [place] [id number] S [id number] [facility] MEDICAID [id number] S [id number] [facility] [facility] [place] MAN -PHYSICIAN [id number] 18 [id number] [facility] [facility] [place] [id number] 18 [id number] SELF PAY ONLY UNAVAILABLE SP UNAV AILABLE SELF PAY ONLY - SP1 UNAVAILABLE SP UNAVAILABLE [place] [facility] [place] [id number] S [id number] [facility] [id number] Self JENNI [facility]AI[facility] [place] Medicaid/CHP/FHP Commercial [id number] Self [facility] [id number] FA2 [id number] [facility] [id number] CHILD [id number] [facility] [id number] SP [id number] [facility] [id number] CHILD [id number] [facility] COMMERCIAL [id number] S [id number] [facility] COMMERCIAL [id number] S [id number] [facility] MEDICAID [id number] S [id number] [facility] MEDICAID [id number] S [id number] [facility] MEDICAID [id number] S [id number] SELF PAY ONLY [id number] SP [id number] Problems, Conditions, and Diagnoses Code Display Name Description Problem Type Effective Dates Data Source(s) J34.89 Other specified disorders of nose and na bette sinuses OTHER SPECIFIED DISORDERS OF NOSE AND NASAL SINUSE Diagnosis 11/26/2020 04:30:00 PM ED [facility] J06.9 Acute upper respiratory infection, unspe cified ACUTE UPPER RESPIRATORY INFECTION, UNSPECIFIED Diagnosis 11/26/2020 04:30:00 PM EDT [facility] ital Z02.89 Encounter for other administrative exami nations ENCOUNTER FOR OTHER ADMINISTRATIVE EXAMINATIONS Diagnosis 05/28/2020 08:10:00 AM [facility] Z28.21 Immunization not carried out because of patient refusal IMMUNIZATION NOT CARRIED OUT BECAUSE OF PATIENT RE Diagnosis 12/18/2019 01:50:00 PM [facility] I10 Essential (primary) hypertension ESSENTIAL (PRIMARY) H YPERTENSION Diagnosis 12/18/2019 01:50:00 PM [facility] E78.00 PURE HYPERCHOLESTEROLEMIA, UNSPECIFIED P URE HYPERCHOLESTEROLEMIA, UNSPECIFIED Diagnosis 12/18/2019 01:50:00 PM EST [facility] Z11.3 Encounter for screening for infections with a predominantly sexual mode of transmission ENCNTR SCREEN FOR INFECTIONS W SEXL MODE Diagnosis 12/18/2019 01:50:00 PM [facility] Z11.4 Encounter for screening for human immuno deficiency virus [HIV] ENCOUNTER FOR SCREENING FOR HUMAN IMMUNO Diagnosis 12/18/2019 01:50:00 PM EST [facility] E11.65 [id number] Type 2 diabetes mellitus with hyperglycem ia Problem 12/18/2019 12:00:00 AM EST eCW1 ([facility]) Surgeries/Procedures Procedure Description Date Indications Data Source(s) Diabetic Foot Exam 01/13/2020 12:00:00 AM EST [facility] ([facility]) Results ID Date Data Source [id number] 11/26/2020 05:00:00 PM EDT [facility] Name Value Range Interpretation Code Description Data Claudia rce(s) Supporting Document(s) COVID-19 NEGATIVE [facility] This lab was ordered by [facility]pert Lab and reported by [facility] Laboratory. ID Date Data Source [id number] 11/26/2020 05:24:00 PM EDT [facility] Name Value Range Interpretation Code Description Data Claudia rce(s) Supporting Document(s) COVID-19 NEGATIVE NEGATIVE [facility] Negative results should be treated as pr [...] are for the indentification of SARS-CoV-2 RNA. [id number] RNA is generally detectable in respiratorysamples during the actue phase of infection. ID Date Data Source COVID-19 IN-HOUSE 11/26/2020 12:00:00 AM EDT eCW1 ([facility]) Name Value Range Interpretation Code Description Data Claudia rce(s) Supporting Document(s) NEGATIVE NEGATIVE COVID-19 eCW1 ([facility]) ID Date Data Source [id number] 11/01/2020 12:15:00 PM EDT [facility] Name Value Range Interpretation Code Description Data Claudia rce(s) Supporting Document(s) SARS-CoV-2 RNA Resp Ql MISAEL+probe NOT DETECTED [facility] This lab was ordered by REJI moses and reported by REJI Soriano. ID Date Data Source [id number] 09/02/2020 12:45:00 PM EDT [facility] Name Value Range Interpretation Code Description Data Claudia rce(s) Supporting Document(s) SARS-CoV-2 RNA Resp Ql MISAEL+probe NOT DETECTED [facility] This lab was ordered by REJI moses and reported by REJI Soriano. ID Date Data Source [id number] 02/13/2020 04:00:00 PM EST MEDENT ([facility]) Name Value Range Interpretation Code Description Data Claudia rce(s) Supporting Document(s) Creatinine [Mass/volume] in Urine 112.0 mg/dL MED[facility] ([facility]) Microalbumin [Mass/volume] in Urine 828.0 mg/L MED[facility] ([facility]) Microalbumin/Creatinine [Mass Ratio] in Urine 739.2 MCG/MG 0.0-30.0 MED[facility] ([facility]) THE [employer] STATES THAT MICROALBUMINURIA IS PRESENT IF THE MICROALBUMIN/CREATININE RATIO EXCEEDS 30 MCG/MG. THE THRESHOLD FOR CLINICAL ALBUMINURIA IS REACHED AT 300 MCG/MG. THE CLASSIFICATION OF A PATIENT SHOULD BE BASED UPON AT LEAST 2 OF 3 ABNORMAL RESULTS ON SPECIMENS COLLECTED WITHIN A 3 TO 6 MONTH TIME FRAME. ID Date Data Source [id number] 02/12/2020 04:00:00 PM EST MEDENT ([facility]) Name Value Range Interpretation Code Description Data Claudia rce(s) Supporting Document(s) Creatinine [Mass/volume] in Urine 112.0 mg/dL MED[facility] ([facility]) Microalbumin [Mass/volume] in Urine 828.0 mg/L MED[facility] ([facility] ) Microalbumin/Creatinine [Mass Ratio] in Urine 739.2 MCG/MG 0.0-30.0 MEDENT ([facility]) [employer] STATES THAT MICROALBUMINURIA IS PRESENT IF THE MICROALBUMIN/CREATININE RATIO EXCEEDS 30 MCG/MG. THE THRESHOLD FOR CLINICAL ALBUMINURIA IS REACHED AT 300 MCG/MG. THE CLASSIFICATION OF A PATIENT SHOULD BE BASED UPON AT LEAST 2 OF 3 ABNORMAL RESULTS ON SPECIMENS COLLECTED WITHIN A 3 TO 6 MONTH TIME FRAME. ID Date Data Source [id number]/GC AMPLIFICATION 12/23/2019 10:01:38 AM EST eCW1 ( [facility]) Name Value Range Interpretation Code Description Data Claudia rce(s) Supporting Document(s) Negative NEISSERIA GONORRHOEAE, NA A eCW1 ([facility]) Negative CHLAMYDIA TRACHOMATIS, NA A eCW1 ([facility]) ID Date Data Source [id number] 12/22/2019 06:35:00 AM EST [facility] Name Value Range Interpretation Code Description Data [facility] rce(s) Supporting Document(s) CHLAMYDIA TRACHOMATIS, MISAEL Negative Negative [facility] NEISSERIA GONORRHOEAE, MISAEL Negative Negative [facility] Performed at: RN - [facility] [address] [id number] Director: Nancy Norris MD, Phone: [phone] ID Date Data Source [id number] 12/22/2019 06:35:00 AM EST [facility] Name Value Range Interpretation Code Description Data Claudia rce(s) Supporting Document(s) Chlamydia/GC Amplification [facility] TESTS RESULT FLAG UNI TS REF RANGE LAB C trachomatis, MISAEL Negative (Negative) 01N gonorrhoeae, MISAEL Negative (Negative) 01 FLAG LEGEND: L-Low Normal,H-High Normal,LL-Alert Low,HH-Alert High <-Panic Low,>-Panic High,A-Abnormal,AA-Critical Abnormal Performed at:[address] [facility] [address] [id number] Nancy Norris MD, ID Date Data Source [id number] 12/25/2019 04:05:00 PM EST [facility] Name Value Range Interpretation Code Description Data Claudia rce(s) Supporting Document(s) HIV Screen 4th Generation wRfx Non Reactive Non Reactive [facility] ID Date Data Source [id number] 12/19/2019 04:09:00 PM EST [facility] Name Value Range Interpretation Code Description Data Claudia rce(s) Supporting Document(s) HIV SCREEN 4TH GEN Non Reactive Non Reactive [facility] Performed at: RN - [facility] [address] [id number] Director: Nancy Norris MD, Phone: [phone] ID Date Data Source [id number] 12/18/2019 03:25:00 PM EST [facility] Name Value Range Interpretation Code Description Data Claudia rce(s) Supporting Document(s) ESTIMATED AVERAGE GLUCOSE 266.1 mg/dL [facility] ID Date Data Source [id number] 12/18/2019 03:25:00 PM EST [facility] Name Value Range Interpretation Code Description Data Claudia rce(s) Supporting Document(s) HGBA1C 10.9 % 3.8-5.6 [facility] Diabetic > or = to 6.5%Prediabetes 5.7-6 .4%Normal <5.7 ID Date Data Source [id number] 12/18/2019 03:25:00 PM [facility] CALLED GLUCOSE TO [facility] AT 1524 Name Value Range Interpretation Code Description Data Claudia rce(s) Supporting Document(s) CHOLESTEROL 186 mg/dL 0-200 [facility] TRIGLYCERIDES 52 mg/dL 0-150 [facility] LDL CHOLESTEROL 99 mg/dL 0-100 [facility] HDL CHOLESTEROL 77 mg/dL 40-60 H [facility] CHOL/HDL RATIO 2.4 0.0-5.0 [facility] ID Date Data Source [id number] 12/18/2019 03:25:00 PM [facility] AT 1524 Name Value Range Interpretation Code Description Data Claudia rce(s) Supporting Document(s) GLUCOSE 410 mg/dL 74-106 *H [facility] BLOOD UREA NITROGEN 21 mg/dL 7-18 H [facility] ital CREATININE 1.1 mg/dL 0.6-1.0 H [facility] SODIUM 133 mmol/L 136-145 L [facility] POTASSIUM 5.0 mmol/L 3.5-5.1 [facility] CHLORIDE 98 mmol/L 98-107 [facility] CO2 27 mmol/L 21-32 [facility] CALCIUM 9.3 mg/dL 8.5-10.1 [facility] ANION GAP 8.0 mmol/L 5-12 [facility] GLOMERULAR FILTRATION RATE 61 mL/min [facility] GFR IS CALCULATED IN mL/min/1.73m2 SHAILESH L FUNCTION: >90MILDLY DECREASED: 60-89MILDY TO MODERATELY DECREASED: 45-59 MODERATELY TO SEVERELY DECREASED: 30-44SEVERELY DECREASED: 15-29RENAL FAILURE: <15 AST 16 U/L 15-37 [facility] ALT 25 U/L 12-78 [facility] ALKALINE PHOSPHATASE 54 U/L 46-116 [facility] pital TOTAL BILIRUBIN 0.5 mg/dL 0.2-1.0 [facility] TOTAL PROTEIN 7.3 g/dl 6.4-8.2 [facility] ALBUMIN 3.7 gm/dL 3.4-5.0 [facility] ID Date Data Source [id number] 12/18/2019 03:07:00 PM [facility] Name Value Range Interpretation Code Description Data Claudia rce(s) Supporting Document(s) WHITE BLOOD COUNT 8.4 K/mm3 4.0-10.0 [facility] 4.26 M/mm3 4.00-5.50 [facility] HEMOGLOBIN 11.2 gm/dL 12.0-16.0 L [facility] HEMATOCRIT 31.6 % 36.0-48.8 L [facility] MEAN CELL VOLUME 74.2 fl 80-96 L [facility] MEAN CORPUSCULAR HEMOGLOBIN 26.3 pg 27.0-31.0 L [facility] MEAN CORPUSCULAR HGB CONC 35.4 g/dl 32.0-36.0 [facility] RED CELL DISTRIBUTION WIDTH 13.0 % 10.0-14.5 [facility] PLATELET COUNT 234 K/mm3 172-450 [facility] ID Date Data Source CBC 12/18/2019 06:16:14 AM EST eCW1 ([facility]) Name Value Range Interpretation Code Description Data Claudia rce(s) Supporting Document(s) 4.44 4.00-5.50 RBC eCW1 ([facility]) 11.7 12.0-16.0 HGB eCW1 ([facility]) 8.4 4.0-10.0 WBC eCW1 ([facility]) 26.4 27.0-31.0 MCH eCW1 ([facility]) 32.6 36.0-48.8 HCT eCW1 ([facility]) 73.4 80-96 MCV eCW1 ([facility]) 35.9 32.0-36.0 MCHC eCW1 ([facility]) 14.0 10.0-14.5 RDW eCW1 ([facility]) 268 172-450 PLT eCW1 ([facility]) 11.2 HEMOGLOBIN eCW1 ([facility]) 4.26 RED BLOOD COUNT eCW1 ([facility]) 8.4 WHITE BLOOD COUNT eCW1 ([facility]) 26.3 MEAN CORPUSCULAR HEMOGLOB IN eCW1 ([facility]) 74.2 MEAN CELL VOLUME eCW1 ([facility]) 31.6 HEMATOCRIT eCW1 ([facility]) 234 PLATELET COUNT eCW1 ([facility]) 13.0 RED CELL DISTRIBUTION WID TH eCW1 ([facility]) 35.4 MEAN CORPUSCULAR HGB CONC eCW1 ([facility]) ID Date Data Source LIPID PROFILE 12/18/2019 06:16:07 AM EST eCW1 ([facility]) Name Value Range Interpretation Code Description Data Claudia rce(s) Supporting Document(s) 186 CHOLESTEROL eCW1 ([facility]) 52 TRIGLYCERIDES eCW1 ([facility]) 77 HDL CHOLESTEROL eCW1 ([facility]) 2.4 CHOL/HDL RATIO eCW1 ([facility]) Cholesterol in LDL [Mass/volume] in Serum or Plasma by calculation 99 LDL CHOLESTEROL eCW1 ([facility]) ID Date Data Source [id number] 12/18/2019 06:16:02 AM EST eCW1 ([facility]) Name Value Range Interpretation Code Description Data Claudia rce(s) Supporting Document(s) Hemoglobin A1c/Hemoglobin.total in Blood by HPLC 10.5 4.5-6.2 HA1C eCW1 ([facility]) 10.8 4.5-6.2 HA1C eCW1 ([facility]) Hemoglobin A1c/Hemoglobin.total in Blood 10.9 HGBA1C eCW1 ([facility]) Procedure Social History Code Duration Value Status Description Data Source(s ) Smoking 11/26/2020 12:00:00 AM EDT Never Smoker completed Never S moker eCW1 ([facility]) Smoking 05/28/2020 12:00:00 AM EDT Never Smoker completed Never S moker eCW1 ([facility]) Smoking 05/28/2020 12:00:00 AM EDT Never Smoker completed Never S moker eCW1 ([facility]) Smoking 05/28/2020 12:00:00 AM EDT Never Smoker completed Never S moker eCW1 ([facility]) Smoking 05/28/2020 12:00:00 AM EDT Never Smoker completed Never S moker eCW1 ([facility]) Smoking 04/10/2020 12:00:00 AM EST Patient has never smoked co mpleted Patient has never smoked MEDENT ([facility]) Smoking 12/18/2019 12:00:00 AM EST Never Smoker completed Never S moker eCW1 ([facility]) Smoking 12/18/2019 12:00:00 AM EST Never Smoker completed Never S moker eCW1 ([facility]) Smoking 12/18/2019 12:00:00 AM EST Never Smoker completed Never S moker eCW1 ([facility]) Vital Signs ID Date Data Source UNK Name Value Range Interpretation Code Description Data Source(s) Body mass index (BMI) [Ratio] 24.64 kg/m2 24.64 kg/m2 eCW1 ([facility]) Body height 62.75 [in_i] 62.75 [in_i] eCW1 ([facility]) Body temperature 97.5 [degF] 97.5 [degF] eCW1 ( [facility]) Respiratory rate 16 /min 16 /min eCW1 ([facility]) Oxygen saturation in Arterial blood by Pulse oximetry 98 % 98 % eCW1 ([facility]) Body weight 138 [lb_av] 138 [lb_av] eCW1 ([facility]) Heart rate 98 /min 98 /min eCW1 ([facility]) Body height 62.75 [in_i] 62.75 [in_i] eCW1 ([facility]) Body weight 133 [lb_av] 133 [lb_av] eCW1 ([facility]) Body mass index (BMI) [Ratio] 23.75 kg/m2 23.75 kg/m2 eCW1 ([facility]) Body temperature 97.9 [degF] 97.9 [degF] eCW1 ( [facility]) Heart rate 89 /min 89 /min eCW1 ([facility]) Respiratory rate 17 /min 17 /min eCW1 ([facility]) Oxygen saturation in Arterial blood by Pulse oximetry 98 % 98 % eCW1 ([facility]) Body mass index (BMI) [Ratio] 24.0 kg/m2 24.0 k g/m2 MEDENT ([facility]) Diastolic blood pressure 84 mm[Hg] 84 mm[Hg] MEDENT ([facility]) Heart rate 109 /min 109 /min [facility] ([facility] ) Systolic blood pressure 134 mm[Hg] 134 mm[Hg] M EDENT ([facility]) Body temperature 96.8 [degF] 96.8 [degF] MEDENT ([facility]) Body height 62.8 [in_i] 62.8 [in_i] MEDENT ([facility]) 5'2.80" Body weight 134.38 [lb_av] 134.38 [lb_av] MEDEN T ([facility] ) Oxygen saturation in Arterial blood by Pulse oximetry 99 % 99 % MEDENT ([facility] ) Diastolic blood pressure 80 mm[Hg] 80 mm[Hg] MEDENT ([facility]) Systolic blood pressure 124 mm[Hg] 124 mm[Hg] M EDENT ([facility]) Heart rate 103 /min 103 /min MED[facility] ([facility] ) Body temperature 97.1 [degF] 97.1 [degF] MED[facility] ([facility] ) Body height 62.8 [in_i] 62.8 [in_i] MED[facility] ([facility] 5'2.80" Body weight 136.31 [lb_av] 136.31 [lb_av] MEDEN T ([facility] ) Body mass index (BMI) [Ratio] 24.3 kg/m2 24.3 k g/m2 MED[facility] ([facility] ) Oxygen saturation in Arterial blood by Pulse oximetry 97.1 % 97.1 % MEDENT ([facility]) Body height 62.75 [in_i] 62.75 [in_i] eCW1 ([facility]) Body weight 122.0 [lb_av] 122.0 [lb_av] eCW1 ([facility]) Body mass index (BMI) [Ratio] 21.78 kg/m2 21.78 kg/m2 eCW1 ([facility]) Body temperature 98.0 [degF] 98.0 [degF] eCW1 ( [facility]) Heart rate 88 /min 88 /min eCW1 ([facility]) Respiratory rate 18 /min 18 /min eCW1 ([facility]) Oxygen saturation in Arterial blood by Pulse oximetry 98 % 98 % eCW1 ([facility]) Patient Treatment Plan of Care Planned Activity Planned Date Details Description Data Source (s) Flonase Allergy Relief 50 MCG/ACT 11/26/2020 12:00:00 AM EDT eCW1 ([facility]) 12 HR cetirizine hydrochloride 5 MG / Ps eudoephedrine Hydrochloride 120 MG Extended Release Oral Tablet [Zyrtec-D] 11/26/2020 12:00:00 AM EDT eCW1 ([facility])
== END 2021-01-15 01:39 | disposition left against medical advice (07) ==
LOC: M ED 18:01
DX: Z53.29 Procedure and treatment not carried out because of patient's decision for other reasons (principal)

== ENCOUNTER 2021-01-20 10:33 | Outpatient (CLI) | payer OTHER ==
[~2021-01-20] VITALS: Ht 160 cm; Wt 59.0 kg
[~2021-01-20 10:33] MED LIST changes: +ALBUTEROL 90 MCG/ACT 8GM HFA INHALER INH PRN; +ALBUTEROL SULFATE 2.5 MG/0.5 ML INH NEB SOLN INH PRN; +BASA100I; +EPINEPHrine INJ 1 MG/ML 1ML AMP IM PRN; +NS 1,000 ML IV SCH; +diphenhydrAMINE 50MG/ML VIAL (J1200) IV PRN; +methylPREDNISolone 125MG 2ML VIAL IV PRN
[2021-01-20 11:03] VITALS: BP 121/70
[2021-01-20] MEDS ORDERED: CASIRIVIMAB (REGN10933) 600 MG, IMDEVIMAB (REGN10987) 600 MG in NS 250 ML IV ONE (11:30)
[2021-01-20 11:33] VITALS: BP 108/66
[2021-01-20 12:03] VITALS: BP 113/68
[2021-01-20 13:03] VITALS: BP 115/75
== END 2021-01-20 13:03 | disposition home or self-care (01) ==
LOC: M OPCLI4PR 10:33
PROVIDERS: ATTEND Physician Assistant
DX: U07.1 COVID-19 (principal)

== ENCOUNTER 2022-04-25 22:55 | Emergency (ER) | payer OTHER ==
[~2022-04-25] VITALS: Ht 160 cm; Wt 64.4 kg
[~2022-04-25 22:55] MED LIST changes: -ALBUTEROL 90 MCG/ACT 8GM HFA INHALER INH PRN; -ALBUTEROL SULFATE 2.5 MG/0.5 ML INH NEB SOLN INH PRN; -EPINEPHrine INJ 1 MG/ML 1ML AMP IM PRN; -NS 1,000 ML IV SCH; -diphenhydrAMINE 50MG/ML VIAL (J1200) IV PRN; -methylPREDNISolone 125MG 2ML VIAL IV PRN
[2022-04-26 00:35] LABS: BASO # 0.1 10^3/uL (0.0-0.2); BASO % 0.5 % (0.0-1.0); EOS # 0.2 10^3/uL (0.0-0.5); EOS % 1.4 % (0.0-3.0); HEMATOCRIT 30.3 % (36.0-47.0); HEMOGLOBIN 10.6 g/dl (12.0-15.5); LYMPH # 2.6 10^3/uL (1.5-5.0); LYMPH % 24.9 % (24.0-44.0); MEAN CORPUSCULAR VOLUME 77.3 fl (80.0-96.0); MONO # 0.6 10^3/uL (0.0-0.8); MONO % 5.9 % (2.0-8.0); NEUTROPHILS # 6.9 10^3/uL (1.5-8.5); NEUTROPHILS % 66.6 % (36.0-66.0); PLATELET COUNT, AUTOMATED 247 10^3/uL (150-450); RED BLOOD COUNT 3.92 10^6/uL (4.00-5.40); WHITE BLOOD COUNT 10.4 10^3/uL (4.0-10.0)
[2022-04-26 01:07] LABS: BLOOD UREA NITROGEN 17 MG/DL (9-23); CALCIUM LEVEL 8.7 MG/DL (8.5-10.1); CARBON DIOXIDE LEVEL 20 MMOL/L (20-31); CHLORIDE LEVEL 101 MMOL/L (98-107); CREATININE FOR GFR 0.82 MG/DL (0.55-1.30); GLOMERULAR FILTRATION RATE > 60.0 (>60); GLUCOSE, FASTING 509 MG/DL (60-100); HCG, SERUM QUANTITATIVE 27435.5 MIU/ML (<4.2); POTASSIUM SERUM 4.1 MMOL/L (3.5-5.1); SODIUM LEVEL 132 MMOL/L (136-145)
[2022-04-26] MEDS ORDERED: ACETAMINOPHEN 325 MG TAB PO ONE (01:20)
[2022-04-26 04:53] VITALS: BP 123/70
== END 2022-04-26 05:00 | disposition home or self-care (01) ==
LOC: M ED 22:55
DX: O03.4 Incomplete spontaneous abortion without complication (principal); E10.9 Type 1 diabetes mellitus without complications

== ENCOUNTER → 2022-10-12 | Outpatient (CLI) | payer OTHER ==
[2022-10-12 15:36] LABS: HEMATOCRIT 30.7 % (36.0-47.0); HEMOGLOBIN 10.8 g/dl (12.0-15.5); MEAN CORPUSCULAR HEMOGLOBIN 26.5 pg (27.0-33.0); MEAN CORPUSCULAR HGB CONC 35.2 g/dl (32.0-36.5); MEAN CORPUSCULAR VOLUME 75.4 fl (80.0-96.0); PLATELET COUNT, AUTOMATED 225 10^3/uL (150-450); RED BLOOD COUNT 4.07 10^6/uL (4.00-5.40); WHITE BLOOD COUNT 10.7 10^3/uL (4.0-10.0)
[2022-10-12 15:52] LABS: URIC ACID 4.2 MG/DL (3.1-7.8)
[2022-10-12 15:54] LABS: LDH LACTATE DEHYDROGENASE 160 U/L (120-246)
[2022-10-12 15:55] LABS: ALT/SGPT 9 U/L (7.0-40); AST/SGOT < 8 U/L (<34); BILIRUBIN,TOTAL 0.4 MG/DL (0.3-1.2); CREATININE FOR GFR 0.82 MG/DL (0.55-1.30); GLOMERULAR FILTRATION RATE > 60.0 (>60)
[2022-10-12 15:57] LABS: CREATININE,RANDOM URINE 92.4 MG/DL
[2022-10-12 15:59] LABS: TOTAL PROTEIN,RANDOM URINE 309.1 MG/DL (0.0-14.0)
[2022-10-12 16:27] LABS: HIV 1&2 SCREEN NEGATIVE (NEGATIVE)
[2022-10-12 16:36] LABS: HEPATITIS C VIRUS ABY INDEX 0.12 INDEX (<0.8)
[2022-10-12 17:01] LABS: GC DNA AMPLIFICATION NEGATIVE (NEGATIVE)
== END ==
LOC: M PLALAB 10:59
PROVIDERS: ATTEND Advanced Practice Midwife
DX: Z36.9 Encounter for antenatal screening, unspecified (principal)

== ENCOUNTER → 2022-10-12 | Outpatient (REF) | payer OTHER, MEDICAID | LOC: M PLALAB 10:48 | PROVIDERS: ATTEND Advanced Practice Midwife | DX: Z53.9 Procedure and treatment not carried out, unspecified reason (principal) ==

== ENCOUNTER → 2022-11-02 | Outpatient (CLI) | payer OTHER | LOC: M EKG 13:22 | PROVIDERS: ATTEND Obstetrics & Gynecology | DX: O24.012 Pre-existing type 1 diabetes mellitus, in pregnancy, second trimester (principal); Z3A.00 Weeks of gestation of pregnancy not specified ==

== ENCOUNTER → 2022-12-23 | Outpatient (CLI) | payer OTHER | LOC: M WHC 08:11 | PROVIDERS: ATTEND Obstetrics & Gynecology | DX: O24.312 Unspecified pre-existing diabetes mellitus in pregnancy, second trimester (principal); Z3A.22 22 weeks gestation of pregnancy ==